=== PATIENT | male | born 1950 | race Caucasian/White ===

== ENCOUNTER → 2017-10-01 10:27 | Outpatient (CLI) | payer MEDICARE, OTHER, SELFPAY ==
--- NOTE | 2017-10-01 10:33 | RAD_ITS ---
STUDY: X-RAY - ABDOMEN/PELVIS REASON FOR EXAM: Male, 67 years old. History of bilateral kidney stones. TECHNIQUE: Two AP supine views of the abdomen and pelvis. COMPARISON: Comparison is made with prior study dated June 11, 2017. FINDINGS: Normal visualized lung bases. There is a moderate amount of colonic fecal material. The previously seen left double-J stent catheter has been removed. The previously seen calcification in the lower pole of the left kidney has markedly decreased in size. Tiny nonobstructive left intrarenal calculi are seen. Normal soft tissue structures. Normal visualized osseous structures. RAD/Abdomen Single View IMPRESSION: Tiny left nonobstructive intrarenal calculi are seen. The previously seen left double-J stent catheter has been removed. Electronically Signed: Anurag Spears MD at 11:26 EDT Tel [phone], Service support ,
== END ==
PROVIDERS: Family Provider Family Medicine; PCP Family Medicine; Visit Provider Urology
DX: N20.0 Calculus of kidney (principal)
CPT/HCPCS: 74018

== ENCOUNTER → 2018-01-28 13:50 | Outpatient (CLI) | payer MEDICARE, OTHER, SELFPAY ==
--- NOTE | 2018-01-28 13:57 | RAD_ITS ---
STUDY: X-RAY - ABDOMEN/PELVIS REASON FOR EXAM: Male, 67 years old. Kidney stones. TECHNIQUE: AP abdomen. COMPARISON: October 01, 2017 FINDINGS: There is an unremarkable bowel gas pattern. There is no demonstrated free abdominal air. There are loops of bowel obscuring anatomic detail projecting over the kidneys. Within the expected region of the right kidney there is a 2.6 mm calcific density. Within the expected region of the left kidney there is a punctate calcific density. Normal soft tissue structures. There are degenerative changes of the hips. RAD/Abdomen Single View IMPRESSION: Indeterminate calcific densities projecting over the region of the kidneys which may reflect underlying nonobstructing bilateral renal calculi. Electronically Signed: Reina Chinchilla MD at 11:23 EDT Tel , Service support ,
== END ==
PROVIDERS: Family Provider Family Medicine; PCP Family Medicine; Visit Provider Urology
DX: N20.0 Calculus of kidney (principal)
CPT/HCPCS: 74018

== ENCOUNTER → 2018-08-26 10:07 | Outpatient (CLI) | payer MEDICARE, OTHER, SELFPAY ==
--- NOTE | 2018-08-26 10:12 | RAD_ITS ---
STUDY: X-RAY - ABDOMEN/PELVIS REASON FOR EXAM: Male, 68 years old. Kidney stones. TECHNIQUE: Single AP view of the abdomen / pelvis. COMPARISON: 01/28/[address] scan of today.. FINDINGS: Note that CT scan is far more sensitive and accurate evaluation of renal stones. Please see that report. Today's exam does not show definite renal or ureteral stones because of overlying fecal material. There is an unremarkable bowel gas pattern. There is no demonstrated free abdominal air. The visualized liver, spleen and kidneys are grossly normal in size and morphology. Normal soft tissue structures. Normal visualized osseous structures. RAD/Abdomen Single View IMPRESSION: No definite renal or ureteral stones are seen primarily because of overlying bowel contents. Please see the CT scan of today's date, since CT scan is far more sensitive and accurate for renal or ureteral stones. Electronically Signed: Scar Lacy MD at 21:36 EST , Service support ,
--- NOTE | 2018-08-26 11:13 | CT_ITS ---
STUDY: CT ABDOMEN AND PELVIS WITHOUT CONTRAST REASON FOR EXAM: Male, 68 years old. Right flank pain. Hematuria. History of kidney stones. Prior lithotripsy. RADIATION DOSAGE (If Supplied By Facility): CTDIvol = ( 12.73 ) mGy, DLP = ( 655.35 ) mGycm TECHNIQUE: Transaxial images were obtained from the dome of the diaphragm to the symphysis pubis without oral contrast, and without intravenous contrast. Sagittal and coronal images were reconstructed. Individualized dose optimization techniques were used for this CT. COMPARISON: Comparison is made with prior study dated June 21, 2016. FINDINGS: Minimal increased linear markings at the lung bases suggestive of mild atelectasis. The visualized portions of the heart are within normal limits. Normal liver. Normal gallbladder and extrahepatic biliary system. There are multiple benign calcified granulomata of the spleen. Normal pancreas. Normal bilateral adrenal glands. Right perinephric stranding. Mild to moderate degree of right hydronephrosis and right hydroureter due to a 5.6 mm calculus in the distal one third of the right ureter. Small nonobstructive calculi are seen in the lower pole of the left kidney. The largest measures 3 mm. Focal cortical scarring is seen along the inferior cortex of the left kidney. Normal visualized stomach. Normal small intestine. There are multiple colonic diverticula consistent with diverticulosis. The appendix is visualized and appears normal. Normal abdominal aorta. Normal inferior vena cava. Normal retroperitoneum. Normal urinary bladder. There are prostatic calcifications. Normal abdominal wall. There are degenerative changes of the visualized lumbar spine. CT/Abdomen/Pelvis without Cont IMPRESSION: 5.6 mm calculus in the distal one third right ureter causing right hydronephrosis and right hydroureter. Nonobstructing left intrarenal calculi. Electronically Signed: Anurag Spears MD at 12:18 EST , Service support ,
== END ==
PROVIDERS: Family Provider Family Medicine; PCP Family Medicine; Referring Provider Nurse Practitioner Adult Health; Visit Provider Nurse Practitioner Adult Health
DX: N20.0 Calculus of kidney (principal); R10.9 Unspecified abdominal pain; R31.9 Hematuria, unspecified
CPT/HCPCS: 74018; 74176

== ENCOUNTER 2018-08-30 11:29 | Day surgery (SDC) | payer MEDICARE, OTHER, SELFPAY ==
--- NOTE | 2018-08-29 17:11 | PCM.HP.BLA ---
History and Physical Date of Admission: 08/30/18 68 yo male with long h/o urinary calculi presents with right flank pain that is worse today but has been intermittent for the past month. No fever, chills, nausea, vomiting. No gross hematuria but +microhematuria. He has passed only one stone but has had >20 surgeries for stones. Difficult to interpret today's KUB due to bowel gas. ALLERGIES: Demerol Penicillin Sulfa MEDICATIONS: Cialis 5 mg tablet 1 tablet PO Daily Luer-Yuri Syringe-Needle 23 gauge x 1 syringe, empty disposable INJECT 1 SYRINGE INTRAMUSCULARLY EVERY 2 WEEKS Testosterone Cypionate 200 mg/ml vial INJECT 1 ML EVERY 2 WEEKS Testosterone Cypionate 200 mg/ml vial INJECT 1 ML IM EVERY 2 WEEKS Aspirin Ec 81 mg tablet, delayed release Luer-Yuri Syringe-Needle 23 gauge x 1 syringe, empty disposable 1 syringe IM Q2WK Multivitamin Needle 18 gauge x 1 1/2 needle, disposable 1 needle IM Q2WK Simvastatin Testosterone Cypionate 200 mg/ml vial 1 ml IM Q2WK PSH: Cysto Remove Stent FB Sim - 06/11/2017, 2013 Cysto Uretero Balloon Dil Strict - 2014 Cysto Uretero Remove Stone - 2006 Cysto/Uretero W/Lithotripsy - 06/08/2017, 2013 Cystoscopy Insert Stent - 2013 Cystoscopy Retrogrades - 06/08/2017 Initial Male F & F's - 06/08/2017 Renal ESWL - 06/28/2016, 2013, 2008 NON- PSH: Colonoscopy Patient documented to have received pneumococcal vaccination Treat Skull Fracture PMH: Generalized abdominal pain - 01/28/2018 Personal history of urinary calculi - 10/01/2017 Calculus of kidney - 07/20/2016, - 06/13/2016, - 2015 Testicular hypofunction - 07/20/2016 Dysuria - 2015 Urethral stricture, unspecified - 2014, - 2013, - 2013 Urinary calculus, unspecified - 2014, - 2013 Benign prostatic hyperplasia with lower urinary tract symptoms - 2013, - 2013, - 2013 Unspecified abdominal pain - 2013 Nocturia NON- PMH: Unsp symptoms and signs w cognitive functions and awareness Unspecified osteoarthritis, unspecified site FAMILY HISTORY: Breast Cancer - Mother Colon Cancer - Grandmother, Runs in Family, Uncle, Aunt Pancreatic Cancer - Father SOCIAL HISTORY: Marital Status: Preferred Language: Luxembourgish; Ethnicity: Not Or ; Race: White Current Smoking Status: Patient has never smoked. Does not use smokeless tobacco. Has never drank. Does not use drugs. Drinks 1 caffeinated drink per day. Has not had a blood transfusion. REVIEW OF SYSTEMS: Constitutional: Patient denies fever, chills, weight loss, and weight gain. Gastrointestinal: Patient denies abdominal pain, nausea/vomiting, and change in bowels. Genitourinary: Patient reports history of stones. Patient denies frequent urination, urinary retention, get up at night to void, leakage of urine, blood in urine, frequent urinary tract infections, difficulty starting stream, weak stream, and bedwetting. Musculoskeletal: Patient reports back pain. Patient denies sore muscles. VITAL SIGNS: 08/26/2018 10:37 AM Weight 190 lb / 86.18 kg Height 68 in / 172.72 cm BP 142/84 mmHg BMI 28.9 kg/m? MULTI-SYSTEM PHYSICAL EXAMINATION: Constitutional: Well-nourished. No physical deformities. Normally developed. Good grooming. Neurologic / Psychiatric: Oriented to time, oriented to place, oriented to person. No depression, no anxiety, no agitation. Gastrointestinal: No mass, no tenderness, no rigidity, non obese abdomen. PAST DATA REVIEWED: Source Of History: Patient Records Review: Previous Patient Records Urine Test Review: Urinalysis X-Ray Review: KUB: Reviewed Films. Discussed With Patient. C.T. Abdomen/Pelvis: Reviewed Films. Reviewed Report. Discussed With Patient. 05/15/17 12/09/10 07/11/07 PSA Total PSA 0.57 ng/mL 1.30 2.10 mg/dl PROCEDURES: Urinalysis - 64256 Dipstick Dipstick Cont'd Specimen: Voided Blood: about 250 Appearance: Clear Protein: Neg Color: Yellow Urobilinogen: Neg Glucose: Normal Nitrites: Neg Bilirubin: Neg Leukocyte Esterase: Neg Ketones: Neg ASSESSMENT: ICD-10 Details 1 : Other microscopic hematuria - R31.29 2 Unspecified abdominal pain - R10.9 Stable 3 Calculus of ureter - N20.1 PLAN: Medications New Meds: Oxycodone-Acetaminophen 5 mg-325 mg tablet 1 tablet PO Q 4 H PRN ureteral stone pain #12 0 Refill(s) Document Letter(s): Created for Patient: Clinical Summary Notes: stat CT stone protocol--6 mm stone right mid ureter causing obstruction. I will review case with Dr Moreno to see what procedure he wants to do. Pt to hold ASA 81 mg (last took it yesterday). Signed by Anju Potst, ANP-BC on 08/26/18 at 1:29 PM (EST) APPENDED NOTES: Case discussed with Dr Moreno, he will do Right ureteroscopy laser stone possible stent.
--- NOTE | 2018-08-30 11:49 | RAD_ITS ---
STUDY: X-RAY - ABDOMEN/PELVIS REASON FOR EXAM: Male, 68 years old. Right-sided kidney stones. TECHNIQUE: Two AP supine views of the abdomen and pelvis. COMPARISON: Comparison is made with prior study dated August 26, 2018. FINDINGS: Normal visualized lung bases. There is an abundance of fecal material throughout the colon. I suspect a 5 mm calcification overlying the midportion of the right sacrum. Normal soft tissue structures. Normal visualized osseous structures. RAD/Abdomen Single View IMPRESSION: Findings suggestive of a 5 mm calcification overlying the medial midportion of the right sacrum. This may represent a ureteral calculus. Electronically Signed: Anurag Spears MD at 15:14 EST , Service support ,
[2018-08-30 12:13] VITALS: BMI 29.7
[2018-08-30] MEDS: Lubricating Jelly 60 GM Tube 30 GM TOPICAL (12:21)
[2018-08-30 12:29] VITALS: BP 128/71; PULSE 62; RESP 16; TEMP 37; O2SAT 98; BMI 29.7
[2018-08-30] MEDS: Cefazolin 2 GM in 0.9% Normal Saline 100 ML IV (12:38)
--- NOTE | 2018-08-30 12:47 | DCINST_ITS ---
Discharge Diet: Light diet - advance as tolerated Discharge Activity: Return to Normal Activity Call your doctor if you observe: Fever of 101 or Higher, Inability to urinate, Uncontrolled pain Instructions: Treating Kidney Stones: Ureteroscopic Stone Removal Allergies/Adverse Reactions: Allergies meperidine HCl [From Demerol] Allergy (Verified 08/30/18 12:08) Vomiting Penicillins Allergy (Verified 08/30/18 12:08) Unknown Sulfa (Sulfonamide Antibiotics) Allergy (Verified 08/30/18 12:08) Hives Medications to take at Discharge Aspirin [Aspirin, Baby] 81 mg PO DAILY 04/25/14 Simvastatin [Zocor] 20 mg PO QHS 04/25/14 Tadalafil [Cialis] 5 mg PO DAILY 06/27/16 Testosterone Cypionate [Depo-Testosterone] 100 mg IM QWEEK 08/29/18 Acetaminophen [Tylenol Extra Strength] 500 mg PO Q4H PRN PRN #20 tablet 08/30/18 Hydrochlorothiazide 50 mg PO DAILY #30 tablet 08/30/18 Ibuprofen 600 mg PO Q6H PRN PRN #20 tablet 08/30/18 The following prescriptions were given: Acetaminophen [Tylenol Extra Strength] 500 mg PO Q4H PRN PRN #20 tablet PRN Reason: Pain Ibuprofen 600 mg PO Q6H PRN PRN #20 tablet PRN Reason: Pain Hydrochlorothiazide 50 mg PO DAILY #30 tablet Primary Care Physician: Priscilla Napoles DO [Primary Care Provider] - Test Results: Test results from this visit will be discussed in further detail at your follow- up appointment, if applicable. Please Follow Up With: Abisai Moreno MD When: in 2 weeks, please call to make an appointment.
--- NOTE | 2018-08-30 13:14 | OP.PCM_ITS ---
Report of Operation Date of Procedure: 08/30/18 Pre-Operative Diagnosis: Right ureteral calculi causing obstruction and hy dronephrosis Post-Operative Diagnosis: The same Surgery/Procedure Performed:: Cystoscopy, balloon dilation of the right ureter, right ureteroscopy laser lithotripsy of stone, basket extraction of fragments. No stent placed. Description of Surgical Findings:: 68-year-old male taken back to the operating room after smooth induction of general anesthesia he was placed in dorsolithotomy position the penis and testicles are prepped and draped in usual sterile fashion went into the bladder with a 21 Luxembourgish rigid cystourethroscope cannulated the right ureteral orifice with a Glidewire advanced this up past the stone and then advance balloon dilator up to the stone balloon dilated the distal ureter left the wire in place and then went next the wire with a SlimLine offset ureteroscope was able to get the stone quite easily then used a 270 ?m laser fiber laser the stone little tiny pieces and then used a tipless basket and basket the fragments out of the ureter the ureter was then cleared of all fragments I then removed the wire the ureter was nice and clear and patent no damage injury perforation or trauma to the ureter so therefore no stent was left I went I left the ureter with the ureteroscope drain the bladder and the patient's anesthetic is currently being reversed. Type of Anesthesia:: General Drains: none, no stent - Admit VTE Documentation VTE Present on Admission: No VTE Mechan Device Prophylaxis: SCD's
[2018-08-30 13:25] VITALS: BP 128/71; BP 142/82; PULSE 88; RESP 16; TEMP 36.6; O2SAT 92
[2018-08-30 13:30] VITALS: BP 128/71; BP 138/71; PULSE 79; RESP 18; O2SAT 95
[2018-08-30] MEDS: Ketorolac 15 MG/ML Vial IV (13:33)
[2018-08-30 13:43] VITALS: BP 128/71; BP 132/73; PULSE 86; RESP 18; TEMP 37.2; O2SAT 94
[2018-08-30 14:20] VITALS: BP 128/71; BP 131/66; PULSE 72; RESP 16; TEMP 36.6; O2SAT 97
== END 2018-08-30 14:20 | disposition home or self-care (01) ==
LOC: SDC 11:30 → AC 11:33
PROVIDERS: Family Provider Family Medicine; PCP Family Medicine; Referring Provider Urology; Visit Provider Urology
PROC: 0TJ98ZZ Inspection of Ureter, Via Natural or Artificial Opening Endoscopic (ICD-10-PCS; CPT 52352; principal; 2018-08-30 12:45)
DX: N13.2 Hydronephrosis with renal and ureteral calculous obstruction (principal); Z87.442 Personal history of urinary calculi; R31.29 Other microscopic hematuria; E78.00 Pure hypercholesterolemia, unspecified
CPT/HCPCS: 00862; 52352; 74018; 76000; J7120; C1769; J2405

== ENCOUNTER → 2018-12-06 10:04 | Outpatient (CLI) | payer MEDICARE, OTHER, SELFPAY ==
[2018-09-28 08:16] VITALS: BMI 29.7
--- NOTE | 2018-12-06 10:06 | RAD_ITS ---
STUDY: X-RAY - ABDOMEN/PELVIS REASON FOR EXAM: Male, 68 years old. Bilateral flank pain with history of kidney stones TECHNIQUE: Supine abdomen COMPARISON: 08/30/2018 FINDINGS: Normal visualized lung bases. There is an unremarkable bowel gas pattern. There is no demonstrated free abdominal air. Calcifications projecting over the inferior left kidney are similar measuring up to 5 mm. The right kidney is largely obscured due to bowel contents. The calcification projecting the right sacrum on the prior study is not seen on the current exam. Normal soft tissue structures. Normal visualized osseous structures. RAD/Abdomen Single View IMPRESSION: Stable left nephrolithiasis. Electronically Signed: Tank Hickey MD at 14:14 EDT , Service support ,
== END ==
PROVIDERS: Family Provider Family Medicine; PCP Family Medicine; Referring Provider Urology; Visit Provider Urology
DX: N20.0 Calculus of kidney (principal)
CPT/HCPCS: 74018

== ENCOUNTER 2018-12-25 09:46 | Day surgery (SDC) | payer MEDICARE, OTHER, SELFPAY ==
[2018-09-28 08:16] VITALS: BMI 29.7
--- NOTE | 2018-12-25 09:49 | RAD_ITS ---
STUDY: X-RAY - ABDOMEN/PELVIS REASON FOR EXAM: Male, 68 years old. Left-sided kidney stones. TECHNIQUE: Single AP view of the abdomen / pelvis. COMPARISON: Comparison is made with prior study dated December 06, 2008. FINDINGS: Normal visualized lung bases. There is a moderate amount of colonic fecal material. Stable appearance of the fragmented calcification in the lower pole calyx of the left kidney. Normal soft tissue structures. There are degenerative changes of the visualized lumbar spine. RAD/Abdomen Single View IMPRESSION: Stable appearance of the calcifications in the lower pole calyx of the left kidney. Electronically Signed: Anurag Spears, at 13:24 EDT , Service support ,
[2018-12-25 10:26] VITALS: BP 99/71; PULSE 51; RESP 16; TEMP 36.6; O2SAT 97; BMI 28.3
[2018-12-25] MEDS: Cefazolin 2 GM in 0.9% Normal Saline 100 ML IV (11:00)
--- NOTE | 2018-12-25 11:06 | PCM.DC.URO ---
Discharge Diet: Light diet - advance as tolerated Discharge Activity: Return to Normal Activity Suture Line Care: Avoid Pulling/Pushing, Avoid Pinching/Bending Instructions: Shock Wave Lithotripsy Allergies/Adverse Reactions: Allergies meperidine HCl [From Demerol] Allergy (Verified 12/25/18 10:26) Vomiting Penicillins Allergy (Verified 12/25/18 10:26) Unknown Sulfa (Sulfonamide Antibiotics) Allergy (Verified 12/25/18 10:26) Hives Medications to take at Discharge Testosterone Cypionate [Depo-Testosterone] 100 mg IM QWEEK 08/29/18 aspirin 81 mg chewable tablet 81 mg PO DAILY 09/28/18 bee pollen 550 mg capsule 550 mg PO DAILY cap 09/28/18 Hydrocodone/Acetaminophen [[place] 5-325 Tablet] 1 ea PO Q4H PRN PRN 5 Days #20 tab 12/25/18 The following prescriptions were given: Hydrocodone/Acetaminophen [[place] 5-325 Tablet] 1 ea PO Q4H PRN PRN 5 Days #20 tab PRN Reason: Pain Primary Care Physician: Priscilla Napoles DO [Primary Care Provider] - Test Results: Test results from this visit will be discussed in further detail at your follow-up appointment, if applicable. Please Follow Up With: Abisai Moreno MD When: in 2 weeks, please call to make an appointment.
--- NOTE | 2018-12-25 11:51 | PCM.OPRPT ---
Report of Operation Date of Procedure: 12/25/18 Pre-Operative Diagnosis: Left renal calculi Post-Operative Diagnosis: Same Surgery/Procedure Performed:: Left extracorporeal shockwave lithotripsy Description of Surgical Findings:: 68-year-old male history of kidney stones and some in the office with an x-ray recently the past and few fragments on the KUB as multiple fragments within the left kidney replanning the treat the stones with shockwave lithotripsy. 68-year-old male taken back to the operating room at the smooth induction of general anesthesia he was placed supine on the table and then we came in with the F2 lithotripter machine came in underneath the stone could see the stone in the lower pole of the left kidney and then a applied 3000 shockwaves to the stones at a constant rate of 90, power varying from 5 to 7 kV. During the fragmentation mucousy changes in the stones as what we could see them under fluoroscopy at the end of the treatment cycle total of 3000 shockwaves the stone particles of broken up small fragments could still see in the lower pole the left kidney but they have definitely changed. Elected not to leave a stent. Patient's anesthetic is being reversed plan to see him back in a few weeks with a KUB. Type of Anesthesia:: General Drains: none - Admit VTE Documentation VTE Present on Admission: No VTE Mechan Device Prophylaxis: SCD's
[2018-12-25 11:57] VITALS: BP 117/81; BP 99/71; PULSE 69; RESP 16; TEMP 36.8; O2SAT 92
[2018-12-25 12:00] VITALS: BP 127/80; BP 99/71; PULSE 72; RESP 16; O2SAT 92
[2018-12-25 12:15] VITALS: BP 125/75; BP 99/71; PULSE 55; RESP 16; O2SAT 94
[2018-12-25 12:30] VITALS: BP 115/74; BP 99/71; PULSE 56; RESP 16; TEMP 36.7; O2SAT 94
[2018-12-25 13:30] VITALS: BP 128/81; BP 99/71; PULSE 88; RESP 16; TEMP 36.1; O2SAT 100
--- NOTE | 2018-12-30 12:09 | HP.PCM_ITS ---
History and Physical Date of Admission: 12/25/18 PATRICIA SLAUGHTER is a 68 year-old male established patient who is here for renal calculi The problem is on the Left side. Patient denies stent, eswl, and percutaneous lithotomy. This procedure was done 1 month ago. This is not his first kidney stone. He is currently doing well. He does not have dysuria. He does not have urgency. He does not have frequency. ALLERGIES: Demerol Penicillin Sulfa MEDICATIONS: Cialis 5 mg tablet 1 tablet PO Daily Luer-Yuri Syringe-Needle 23 gauge x 1 syringe, empty disposable INJECT 1 SYRINGE INTRAMUSCULARLY EVERY 2 WEEKS Testosterone Cypionate 200 mg/ml vial INJECT 1 ML EVERY 2 WEEKS Testosterone Cypionate 200 mg/ml vial INJECT 1 ML IM EVERY 2 WEEKS Aspirin Ec 81 mg tablet, delayed release Luer-Yuri Syringe-Needle 23 gauge x 1 syringe, empty disposable 1 syringe IM Q2WK Multivitamin Needle 18 gauge x 1 1/2 needle, disposable 1 needle IM Q2WK Oxycodone-Acetaminophen 5 mg-325 mg tablet 1 tablet PO Q 4 H PRN ureteral stone pain Simvastatin Testosterone Cypionate 200 mg/ml vial 1 ml IM Q2WK PSH: Cysto Dilate Stricture (M or F) - 08/30/2018 Cysto Remove Stent FB Sim - 06/11/2017, 2013 Cysto Uretero Balloon Dil Strict - 2014 Cysto Uretero Lithotripsy - 08/30/2018 Cysto Uretero Remove Stone - 2006 Cysto/Uretero W/Lithotripsy - 06/08/2017, 2013 Cystoscopy And Treatment - 08/30/2018 Cystoscopy Insert Stent - 2013 Cystoscopy Retrogrades - 06/08/2017 Initial Male F & F's - 06/08/2017 Renal ESWL - 06/28/2016, 2013, 2008 NON- PSH: Colonoscopy Patient documented to have received pneumococcal vaccination Treat Skull Fracture PMH: Calculus of ureter - 08/26/2018 Other microscopic hematuria - 08/26/2018 Unspecified abdominal pain (Stable) - 08/26/2018, - 2013 Generalized abdominal pain - 01/28/2018 Personal history of urinary calculi - 10/01/2017 Calculus of kidney - 07/20/2016, - 06/13/2016, - 2015 Testicular hypofunction - 07/20/2016 Dysuria - 2015 Urethral stricture, unspecified - 2014, - 2013, - 2013 Urinary calculus, unspecified - 2014, - 2013 Benign prostatic hyperplasia with lower urinary tract symptoms - 2013, - 2013, - 2013 Nocturia NON- PMH: Unsp symptoms and signs w cognitive functions and awareness Unspecified osteoarthritis, unspecified site Immunizations: None FAMILY HISTORY: Breast Cancer - Mother Colon Cancer - Grandmother, Runs in Family, Uncle, Aunt Pancreatic Cancer - Father SOCIAL HISTORY: Marital Status: Preferred Language: Ukrainian; Ethnicity: Not Or ; Race: White Current Smoking Status: Patient has never smoked. Smoking cessation counseling was provided. Does not use smokeless tobacco. Has never drank. Does not use drugs. Drinks 1 caffeinated drink per day. Has not had a blood transfusion. VITAL SIGNS: 09/26/2018 02:18 PM Weight 195 lb / 88.45 kg Height 68 in / 172.72 cm BP 152/90 mmHg BMI 29.6 kg/m? - BMI Counseling was provided. MULTI-SYSTEM PHYSICAL EXAMINATION: Constitutional: Well-nourished. No physical deformities. Normally developed. Good grooming. Neck: Neck symmetrical, not swollen. Normal tracheal position. Respiratory: No labored breathing, no use of accessory muscles. Normal breath sounds. Cardiovascular: Regular rate and rhythm. No murmur, no gallop. Normal temperature, normal extremity pulses, no swelling, no varicosities. Lymphatic: No enlargement of neck, axillae, groin. Skin: No paleness, no jaundice, no cyanosis. No lesion, no ulcer, no rash. Neurologic / Psychiatric: Oriented to time, oriented to place, oriented to person. No depression, no anxiety, no agitation. Gastrointestinal: No mass, no tenderness, no rigidity, non obese abdomen. Eyes: Normal conjunctivae. Normal eyelids. Ears, Nose, Mouth, and Throat: Left ear no scars, no lesions, no masses. Right ear no scars, no lesions, no masses. Nose no scars, no lesions, no masses. Normal hearing. Normal lips. Musculoskeletal: Normal gait and station of head and neck. PAST DATA REVIEWED: Source Of History: Patient 05/15/17 12/09/10 07/11/07 PSA Total PSA 0.57 ng/mL 1.30 2.10 mg/dl Notes [facility] [address] [place], [place], [id number] This test was performed using the TPSA assay method for the [employer] chemistry system. Values obtained with different assay methods cannot be used interc hangably. When changing PSA assays in the course of monitoring a patient, additional sequential testing should be carried out to confirm baseline values. 05/16/17 Hormones Testosterone, Total 561 ng/dL Notes [facility] [address] [place], [place], [id number] PROCEDURES: Urinalysis - [address]7527 Dipstick Dipstick Cont'd Specimen: Voided Blood: Neg Appearance: Clear pH: 5.0 Color: Yellow Protein: Neg Glucose: Normal Urobilinogen: Neg Bilirubin: Neg Nitrites: Neg Ketones: Neg Leukocyte Esterase: Neg ASSESSMENT: ICD-10 Details 1 : Calculus of ureter - N20.1 PLAN: Document Letter(s): Created for Patient: Clinical Summary Plan for left ESWL for stones.
== END 2018-12-25 13:34 | disposition home or self-care (01) ==
LOC: SDC 09:47 → AC 09:49
PROVIDERS: Family Provider Family Medicine; PCP Family Medicine; Referring Provider Urology; Visit Provider Urology
PROC: (CPT 50590; principal; 2018-12-25 11:05)
DX: N20.2 Calculus of kidney with calculus of ureter (principal); Z88.5 Allergy status to narcotic agent; Z88.0 Allergy status to penicillin; Z88.2 Allergy status to sulfonamides; Z87.442 Personal history of urinary calculi
CPT/HCPCS: 00873; 50590; 74018; J7120; J2405

== ENCOUNTER → 2019-01-30 08:00 | Outpatient (CLI) | payer MEDICARE, OTHER, SELFPAY ==
--- NOTE | 2019-01-30 08:02 | RAD_ITS ---
STUDY: X-RAY - ABDOMEN/PELVIS REASON FOR EXAM: Male, 68 years old. Kidney stone. TECHNIQUE: Two AP supine views of the abdomen and pelvis. COMPARISON: December 25, 2018. FINDINGS: Normal visualized lung bases. There is an unremarkable bowel gas pattern. There is no demonstrated free abdominal air. There are multiple left renal stones at the lower pole measuring 0.2-0.4 cm. Normal soft tissue structures. Mild degenerative change of the spine. RAD/Abdomen Single View IMPRESSION: Stable left renal stones. Electronically Signed: Paul Quinones MD at 9:21 EDT , Service support ,
== END ==
PROVIDERS: Family Provider Family Medicine; PCP Family Medicine; Referring Provider Urology; Visit Provider Urology
DX: N20.0 Calculus of kidney (principal)
CPT/HCPCS: 74018

== ENCOUNTER 2019-02-11 23:33 | Emergency (ER) | payer MEDICARE, OTHER, SELFPAY ==
[2019-02-11 23:34] VITALS: BP 108/70; PULSE 82; RESP 16; TEMP 37.1; O2SAT 93; BMI 26.9
[2019-02-11 23:38] VITALS: TEMP 37.1
--- NOTE | 2019-02-11 23:47 | EKG12_ITS ---
Test Reason : SOB Blood Pressure : / mmHG Vent. Rate : 065 BPM Atrial Rate : 065 BPM P-R Int : 146 ms QRS Dur : 086 ms QT Int : 390 ms P-R-T Axes : 046 -20 008 degrees QTc Int : 405 ms Normal sinus rhythm Normal ECG Confirmed by SHAMAR AKINS ([id number]), book editor ZOILA CARMONA ([id number]) on 02/13/2019 10:01:24 AM Referred By: GERRI Confirmed By:SHAMAR AKINS
[2019-02-12] VITALS: PULSE 73; RESP 16
[2019-02-12] MEDS: Ipratropium/Albuterol Sulfate 3 ML AMPUL.NEB INHALATION
--- NOTE | 2019-02-12 00:04 | RAD_ITS ---
HISTORY: C/O COUGH, SOB, CHEST CONGESTION AND FATIGUE FOR 2 + WEEKS EXAM/TECHNIQUE: XR Chest 2 Views: COMPARISON: None. FINDINGS: # of images incl. paperwork: 2 Mild lingular opacity. Lungs otherwise clear. No evidence of pneumothorax or pleural effusion. Heart size normal. No acute osseous abnormality. RAD/Chest PA and Lateral IMPRESSION: Lingular opacity could represent mild pneumonia or atelectasis. at 0157 Reported and signed by: Augusto Madrid MD Electronically Signed: Augusto Madrid, at 1:55 EDT Tel , Service support ,
[2019-02-12] MEDS: 0.9% Normal Saline 1,000 ML 150 ML IV (00:17)
[2019-02-12] MEDS: MethylPREDNISolone 125 MG/2 ML Vial IV (00:17)
[2019-02-12 00:25] VITALS: O2SAT 95
[2019-02-12 00:30] LABS: Absolute Lymphocyte Count 1.47 X10^3/uL (0.83-4.51); Basophil# 0.05 X10^3/uL; Basophil% 0.7 % (0-1); Eosinophil# 0.15 X10^3/uL; Hematocrit 44.8 % (40-54); Hemoglobin 15.7 g/dL (13.0-16.5); Lymphocyte # 1.47 X10^3/ul (4.0); Lymphocyte % 19.7 % (19-41); Mean Corpuscular Hgb 29.7 pg (27.0-32.0); Mean Corpuscular Volume 84.8 fL (80-94); Mean Platelet Vol. 9.7 fl (6.2-12.0); Monocyte# 0.74 X10^3/uL; Monocyte% 9.9 % (0-10); NRBC Flagged by Analyzer 0 % (0-5); Neutrophil # 5.03 X10^3/uL (2.7-7.7); Neutrophil % 67.6 % (47-70); Platelet Count 180 K/mm3 (150-450); RBC Distribution Width CV 12.6 % (11.6-14.6); RBC Distribution Width SD 38.4 fl (35.1-43.9); Red Blood Count 5.28 M/mm3 (4.6-6.2); White Blood Count 7.5 K/mm3 (4.4-11.0)
[2019-02-12 00:51] LABS: Lactic Acid 1.2 mmol/L (0.4-2.0)
[2019-02-12 00:55] LABS: Anion Gap 5 (5-15); BUN 16 mg/dL (7-18); Calcium,Total 8.9 mg/dL (8.5-10.1); Chloride 105 mmol/L (98-107); Creatinine, Serum 1.07 mg/dL (0.70-1.30); EST Glomerular Filtration Rate 73 mL/min (>60); Est Glom Filt Rate - Afr Amer 89 mL/min (>60); Glucose 115 mg/dL (74-106); Sodium Level 138 mmol/L (136-145)
--- NOTE | 2019-02-12 02:10 | ED.VISSUMM ---
- ER Visit Summary Date of Service: 02/12/19 Chief Complaint: [Cough and shortness of breath] History of Present Illness: The patient is a 68 M [presents to the emergency department with a cough that he said for about 11 days. Patient coughing up some yellow sputum. He has had chills and sweats. Patient was seen in urgent care yesterday and started on doxycycline. Patient complains of generalized weakness. Patient complains of some exertional dyspnea. states that she gave him her inhaler because he was wheezing tonight.] Patient does not smoke. Patient has no real medical history other than kidney stones. Physical Examination: [HEENT-PERRLA, EOMI. Cranial nerves II through XII grossly intact. TMs clear. Mucous membranes moist. No adenopathy. Cardiovascular-regular rate and rhythm without murmur or ectopy Lungs-rales in the bases with rhonchi and some expiratory wheezes bilaterally. No accessory muscle use or retractions. No subcu emphysema. Chest wall stable. Abdomen-normoactive bowel sounds, soft, nontender, no rebound or rigidity, no peritoneal signs. Extremities-intact ?4, normal range of motion, normal pulses, atraumatic] Test Results: [EKG obtained arrival shows sinus rhythm with a ventricular rate 65 bpm. CBC with differential was normal with normal white count of 7.5. Chemistries were normal. Troponin is less than 0.15. Chest x-ray showed a increased lingular opacity could be early infiltrate.] Emergency Department Course and Treatment: [She was given DuoNeb aerosol and start Solu-Medrol 125 mg IV. Patient was given Levaquin 750 mg p.o.] Treatment Plan: [She will be switched to Levaquin for suspected pneumonia. Patient will be given Tessalon Perles and albuterol MDI. She will be started on prednisone.] Disposition: [Discharged to home stable condition] Impression: [Pneumonia Reactive airway disease] This note was generated with [employer] dictation software. It may contain incorrect words, spelling, and punctuation that were not noted in review of the chart prior to signing ED Disposition - Plan for ED Patient: Referrals: Priscilla Napoles DO [Primary Care Provider] -
--- NOTE | 2019-02-12 02:13 | ED.DEP ---
ED Disposition - Plan for ED Patient: Instructions: PNEUMONIA (Adult) Prescriptions: Prednisone [Deltasone] 20 mg PO BID #10 tab Prescription Printed Levofloxacin [Levaquin] 750 mg PO DAILY #7 tab Prescription Printed Benzonatate [Tessalon Perle] 200 mg PO TID PRN PRN #20 cap PRN Reason: Cough Prescription Printed Albuterol Inhaler [Ventolin Hfa] 2 puff INHALATION Q4H PRN PRN #1 inhaler PRN Reason: Wheezing Prescription Printed Referrals: Priscilla Napoles DO [Primary Care Provider] - 3-5 Days
[2019-02-12] MEDS: levoFLOXacin 750 MG Tablet PO (02:29)
[2019-02-12 02:30] VITALS: BP 116/76; PULSE 82; RESP 16; TEMP 37; O2SAT 91
== END 2019-02-12 02:32 | disposition home or self-care (01) ==
PROVIDERS: Emergency Provider Emergency Medicine; Family Provider Family Medicine; PCP Family Medicine
DX: J18.9 Pneumonia, unspecified organism (principal); J45.909 Unspecified asthma, uncomplicated; Z87.442 Personal history of urinary calculi
CPT/HCPCS: 36415; 71046; 80048; 83605; 84484; 85025; 87040; 93005; 94640; 96361; 96374; 99285; J7030; A4216

== ENCOUNTER → 2019-05-08 12:21 | Outpatient (CLI) | payer MEDICARE, OTHER, SELFPAY ==
--- NOTE | 2019-05-08 12:25 | RAD_ITS ---
STUDY: X-RAY CHEST REASON FOR EXAM: Male, 69 years old. Fever and cough TECHNIQUE: PA and lateral views of the chest. COMPARISON: None. FINDINGS: EKG leads overlie the chest There are interstitial fibrotic changes of the lungs. There is no demonstrated pleural abnormality. Normal size heart. Normal mediastinum and my. Normal visualized pulmonary arteries. Normal visualized aortic arch and descending thoracic aorta. Normal visualized thoracic spine. Normal visualized ribs, clavicles, and shoulders. There is no demonstrated abnormality of the visualized soft tissue structures of the upper abdomen. RAD/Chest PA and Lateral IMPRESSION: Chronic interstitial changes, no superimposed acute pulmonary process Electronically Signed: Koby Arana MD at 12:42 EDT , Service support ,
[2019-05-08 13:47] LABS: Absolute Lymphocyte Count 1.05 X10^3/uL (0.83-4.51); Absolute Neutrophil Count 5.5 X10^3/uL (2.0-7.7); Basophil# 0.03 X10^3/uL; Basophil% 0.4 % (0-1); Eosinophil# 0.03 X10^3/uL; Eosinophils% 0.4 % (0-5); Hematocrit 50.3 % (40-54); Hemoglobin 16.9 g/dL (13.0-16.5); Lymphocyte # 1.05 X10^3/ul (4.0); Lymphocyte % 14.7 % (19-41); Mean Corp Hgb Conc 33.6 g/dL (32-36); Mean Corpuscular Volume 89.3 fL (80-94); NRBC Flagged by Analyzer 0 % (0-5); Neutrophil % 77.1 % (47-70); Platelet Count 206 K/mm3 (150-450); RBC Distribution Width CV 12.7 % (11.6-14.6); RBC Distribution Width SD 41.6 fl (35.1-43.9); Red Blood Count 5.63 M/mm3 (4.6-6.2); White Blood Count 7.1 K/mm3 (4.4-11.0)
[2019-05-08 14:02] LABS: ALB/GLOB Ratio 1.3 RATIO (0.9-2.4); AST(SGOT) 15 U/L (15-37); Alanine Aminotransfer ALT/SGPT 31 U/L (16-61); Alkaline Phosphatase 60 U/L (45-117); Anion Gap 5 (5-15); BUN 12 mg/dL (7-18); BUN/Creat Ratio 11.9 RATIO (10-20); Calcium,Total 9.1 mg/dL (8.5-10.1); Chloride 105 mmol/L (98-107); Cholesterol 179 mg/dL (200); Creatinine, Serum 1.01 mg/dL (0.70-1.30); EST Glomerular Filtration Rate 78 mL/min (>60); Est Glom Filt Rate - Afr Amer 95 mL/min (>60); Glucose 85 mg/dL (74-106); High Density Lipoprotein 41 mg/dL; PSA,Total - Annual Screen 0.64 ng/mL (0.00-4.00); Sodium Level 142 mmol/L (136-145); Triglycerides 245 mg/dL; Very Low Density Lipoprotein 49 mg/dL (5-40)
== END ==
PROVIDERS: Family Provider Family Medicine; PCP Family Medicine; Referring Provider Family Medicine; Visit Provider Family Medicine
DX: E78.5 Hyperlipidemia, unspecified (principal); N40.0 Benign prostatic hyperplasia without lower urinary tract symptoms; Z51.81 Encounter for therapeutic drug level monitoring; J18.9 Pneumonia, unspecified organism
CPT/HCPCS: 36415; 71046; 80053; 80061; 84153; 85025; G0103

== ENCOUNTER → 2019-09-11 08:05 | Outpatient (CLI) | payer MEDICARE, OTHER, SELFPAY ==
--- NOTE | 2019-09-11 12:01 | STRESSREP_ITS ---
Stress Test Report Date: 09/11/2019 Procedure: Exercise tolerance test Indications: Dyspnea on exertion Consent: Per the patient Procedure: The patient exercised on a Mat protocol for 12 minutes achieving a peak heart rate of 142 bpm (92 % predicted maximal heart rate) with a peak blood pressure 168/72 mmHg and a peak MET capacity of approximately 13.4 mET's. The baseline ECG demonstrated normal sinus rhythm. The peak exercise ECG demonstrated sinus tachycardia with no significant ischemic changes. [There were no cardiac dysrhythmias pretest, during exercise, or recovery]. The functional capacity was considered excellent for age. The patient had no complaint of chest discomfort during exercise or recovery. The examination was discontinued secondary to achieving target heart rate. Impression: 1. Technically adequate (percent predicted maximal heart rate greater than 85%) exercise tolerance test 2. Stress test is negative for exercise-induced chest pain. 3. Stress test test is negative for exercise-induced EKG changes of ischemia. 4. Functional capacity is excellent for age This note was generated with [employer] software. It may contain incorrect words, spelling, and punctuation that were not noted in checking the note before signing.
== END ==
PROVIDERS: PCP Family Medicine; Referring Provider Internal Medicine Pulmonary Disease; Visit Provider Internal Medicine Pulmonary Disease
DX: R06.00 Dyspnea, unspecified (principal)
CPT/HCPCS: 93017

== ENCOUNTER → 2019-09-24 09:25 | Outpatient (CLI) | payer MEDICARE, OTHER, SELFPAY | PROVIDERS: PCP Family Medicine; Visit Provider Family Medicine | DX: R30.0 Dysuria (principal) | CPT/HCPCS: 87086 ==

== ENCOUNTER → 2019-10-07 14:50 | Outpatient (CLI) | payer MEDICARE, OTHER, SELFPAY ==
--- NOTE | 2019-10-07 14:54 | RAD_ITS ---
STUDY: X-RAY - ABDOMEN/PELVIS REASON FOR EXAM: Male, 69 years old. CALCULUS OF URETER;H/O KIDNEY STONES LEFT FLANK PAIN TECHNIQUE: Single AP view of the abdomen / pelvis. COMPARISON: 01/30/2019. FINDINGS: Normal visualized lung bases. There is an unremarkable bowel gas pattern. There is no demonstrated free abdominal air. 2 calcifications in the expected region of the left kidney each averaging approximately 4-4.5 mm. The visualized liver, spleen and kidneys are otherwise grossly normal in size and morphology. Normal soft tissue structures. There are diffuse degenerative changes of the visualized lumbar spine. RAD/Abdomen Single View IMPRESSION: Calcifications in the expected region of the left kidney which may indicate stones as described. Electronically Signed: Denise Stephens MD at 0:48 EDT , Service support ,
== END ==
PROVIDERS: PCP Family Medicine; Referring Provider Urology; Visit Provider Urology
DX: N20.1 Calculus of ureter (principal)
CPT/HCPCS: 74018

== ENCOUNTER 2019-10-10 13:46 | Day surgery (SDC) | payer MEDICARE, OTHER, SELFPAY ==
[2019-10-10 14:08] VITALS: BP 105/87; PULSE 63; RESP 15; TEMP 37; O2SAT 93; BMI 29.2
[2019-10-10] MEDS: Lactated Ringers 1,000 ML 100 ML IV (14:14)
[2019-10-10] MEDS: Cefazolin 2 GM in 0.9% Normal Saline 100 ML IV (16:05)
--- NOTE | 2019-10-10 17:04 | DCINST_ITS ---
Discharge Diet: No Restrictions Discharge Activity: Return to Normal Activity, May Not Drive - for 2 days. Additional Activity Instructions:: Please be aware that pain medications may cause nausea. You should typically eat light foods as you take your pain medication. Pain medication may cause constipation, if this is a problem for you, please discuss with your doctor. Suture Line Care: Avoid Pulling/Pushing, Avoid Pinching/Bending Allergies/Adverse Reactions: Allergies meperidine HCl [From Demerol] Allergy (Verified 10/10/19 13:55) Vomiting Penicillins Allergy (Verified 10/10/19 13:55) Unknown Sulfa (Sulfonamide Antibiotics) Allergy (Verified 10/10/19 13:55) Hives Medications to take at Discharge Testosterone Cypionate [Depo-Testosterone] 100 mg IM QWEEK 08/29/18 aspirin 81 mg chewable tablet 81 mg PO DAILY 09/28/18 bee pollen 550 mg capsule 550 mg PO DAILY cap 09/28/18 Albuterol Inhaler [Ventolin Hfa] 2 puff INHALATION Q4H PRN PRN #1 inhaler 02/12/19 Fluticasone/Vilanterol [Breo Ellipta 200-25 Mcg INH] 1 puff IH DAILY 10/09/19 Gabapentin [Neurontin] 300 mg PO QHS 10/09/19 Simvastatin 20 mg PO DAILY 10/09/19 Ciprofloxacin [Cipro] 500 mg PO BID #6 tab 10/10/19 Hydrocodone/Acetaminophen [[place] 5-325 Tablet] 1 each PO Q4H PRN PRN 5 Days #14 tablet 10/10/19 The following prescriptions were given: Ciprofloxacin [Cipro] 500 mg PO BID #6 tab Transmission Status: Pending to [id number] Hydrocodone/Acetaminophen [[place] 5-325 Tablet] 1 each PO Q4H PRN PRN 5 Days #14 tablet PRN Reason: Pain Score 1-10/10 Transmission Status: Received by [id number] Primary Care Physician: Priscilla Napoles DO [Primary Care Provider] - Test Results: Test results from this visit will be discussed in further detail at your follow- up appointment, if applicable. Please Follow Up With: Abisai Moreno MD When: please call to make an appointment.
--- NOTE | 2019-10-10 17:06 | OP.PCM_ITS ---
Report of Operation Date of Procedure: 10/10/19 Pre-Operative Diagnosis: Left renal calculi Post-Operative Diagnosis: Same Surgery/Procedure Performed:: Cystoscopy, balloon dilation of left ureter, left ureteroscopy, attempted laser and attempted basketing of stones unsuccessful left stent placement Description of Surgical Findings:: Patient presented to the hospital for treatment of a calculus 6 millimeters in size in the proximal ureter and lower pole the kidney. We discussed how the procedure is done what to expect afterwards he probably will need a stent. We discussed the discomfort that the stent would cause, burning w ith urination, frequency, urgency, pain in the kidney, blood in the urine. We also discussed the risk of the procedure including bleeding and infection and the risk of anesthesia. We discussed the very rare risk of injury or scar tissue development in the ureter after this procedure. We also discussed the possibility that the stone would not be able to be treated completely and he may need multiple procedures. After discussion with the patient in the preoperative area also I saw the patient in the office discussing the same outcomes the patient signed the consent form, and all the patient's questions were answered. The patient was taken back to the operating room after smooth induction of general anesthesia and the patient was placed supine on the table. We then repositioned the patient in dorsolithotomy position with the legs in stirrups. We made sure all his pressure points were padded. The patient had SCDs on for DVT prophylaxis and was loaded with IV antibiotics prior to the procedure. Imaging was reviewed if available. I went into the bladder with a 21 Emir[place] rigid cystoscopy ureteroscopy after gentle dilation of the urethra. The urethra had a mild mid urethral stricture that was present was able to get through this with the scope. The prostate prior TURP fairly open a mild stricture at the bladder neck. Inside the bladder the trigone was inspected left and right guevara of the bladder and posterior and dome of the bladder was inspected and the main findings in the bladder was normal with no tumors or stones. I then cannulated the ureter and used a wire to go up to the ureter then over the wire I performed balloon dilation of the distal ureter with a ureteral balloon dilator, the balloon dilator size was 12 Emir[place] dilator. I then left the wire in place and over wire I went up with a ureteroscope. I was able to reach the stone in the lower pole of the left kidney but very difficult location and then attempted to laser the stone using a laser fiber and then attempted to use a basket. After multiple attempts was unsuccessful in treating the stones and abandoned further attempts. I worked my way out of the ureter and over the wire I then loaded up a stent and advanced a stent up into the kidney. A retrograde pyelogram was then performed looking at the contrast images to assist in placement of the stent next and confirmed the location of the kidney and the ureter I then pulled on the wire and the stent coiled in the kidney and bladder in good position. I then drained the bladder with the cystoscope the patient's anesthetic was reversed he will be given pain medicine antibiotics and instructions to call the office for an appointment to remove the stent. Patient's anesthetic is being reversed and is taken back to the PACU in stable condition. Type of Anesthesia:: General Drains: stents on left side - Admit VTE Documentation VTE Present on Admission: No VTE Mechan Device Prophylaxis: SCD's
[2019-10-10 17:11] VITALS: BP 105/87; BP 139/87; PULSE 98; RESP 18; TEMP 37.2; O2SAT 92
[2019-10-10 17:15] VITALS: BP 105/87; BP 145/77; PULSE 83; RESP 18; O2SAT 97
[2019-10-10] MEDS: Ketorolac 15 MG/ML Vial IV (17:25)
[2019-10-10 17:30] VITALS: BP 105/87; BP 154/72; PULSE 74; RESP 16; O2SAT 97
[2019-10-10 17:46] VITALS: BP 105/87; BP 133/72; PULSE 58; RESP 16; TEMP 36.8; O2SAT 97
[2019-10-10] MEDS: oxyCODONE 5 MG Tablet PO (18:04)
[2019-10-10 18:28] VITALS: BP 105/87; BP 143/74; PULSE 65; RESP 16; TEMP 36.4; O2SAT 96
== END 2019-10-10 18:32 | disposition home or self-care (01) ==
LOC: SDC 13:47 → AC 13:48
PROVIDERS: PCP Family Medicine; Referring Provider Urology; Visit Provider Urology
PROC: 0TJ98ZZ Inspection of Ureter, Via Natural or Artificial Opening Endoscopic (ICD-10-PCS; CPT 52352; principal; 2019-10-10 15:05)
DX: N20.0 Calculus of kidney (principal); G47.30 Sleep apnea, unspecified; Z79.82 Long term (current) use of aspirin; Z87.442 Personal history of urinary calculi
CPT/HCPCS: 52356; 76000; J7120; C1769; C2617; J2405

== ENCOUNTER → 2019-10-16 12:25 | Outpatient (CLI) | payer MEDICARE, OTHER, SELFPAY ==
[2019-10-10 14:08] VITALS: BMI 29.2
[2019-10-21 08:07] LABS: Testosterone, Free 2.49 ng/dL (5.00-21.00)
[2019-10-23 11:58] LABS: Testosterone, % Free 1.75 % (1.50-4.20); Testosterone, Total 142 ng/dL (264-916)
== END ==
PROVIDERS: PCP Family Medicine; Referring Provider Urology; Visit Provider Urology
DX: E29.1 Testicular hypofunction (principal)
CPT/HCPCS: 36415; 84402; 84403

== ENCOUNTER → 2020-01-08 14:38 | Outpatient (CLI) | payer MEDICARE, OTHER, SELFPAY ==
--- NOTE | 2020-01-08 14:40 | RAD_ITS ---
STUDY: X-RAY - ABDOMEN/PELVIS REASON FOR EXAM: Male, 69 years old. Left-sided renal stones. Pain. TECHNIQUE: Single AP view of the abdomen / pelvis. COMPARISON: 10/07/2019. FINDINGS: Normal visualized lung bases. Overlapping stones are seen in what is probably the left lower pole. These measure approximately 7 mm greatest dimension which is larger than on previous study. No definite stones on the right. No definite stones along the course of the ureter. There is an unremarkable bowel gas pattern. There is no demonstrated free abdominal air. The visualized liver, spleen and kidneys are grossly normal in size and morphology. Normal soft tissue structures. Normal visualized osseous structures. RAD/Abdomen Single View IMPRESSION: Increasing size of 2 stones probably in lower pole of the left kidney. Electronically Signed: Scar Lacy MD at 22:54 EDT , Service support ,
== END ==
PROVIDERS: PCP Family Medicine; Referring Provider Urology; Visit Provider Urology
DX: N20.0 Calculus of kidney (principal)
CPT/HCPCS: 74018

== ENCOUNTER → 2020-09-27 13:42 | Outpatient (CLI) | payer MEDICARE, OTHER, SELFPAY ==
--- NOTE | 2020-09-27 13:45 | CT_ITS ---
STUDY: CT ABDOMEN AND PELVIS WITHOUT CONTRAST REASON FOR EXAM: Male, 70 years old. LEFT FLANK PAIN RECENT GROSS HEMATURIA RADIATION DOSAGE (If Supplied By Facility): CTDIvol = ( 13.34 ) mGy, DLP = ( 656.65 ) mGycm TECHNIQUE: Transaxial images were obtained from the dome of the diaphragm to the symphysis pubis without oral contrast, and without intravenous contrast. Sagittal and coronal images were reconstructed. Individualized dose optimization techniques were used for this CT. COMPARISON: None. FINDINGS: The visualized lung bases are unremarkable. The visualized portions of the heart are within normal limits. Normal liver. Normal gallbladder and extrahepatic biliary system. Normal spleen. Normal pancreas. Normal bilateral adrenal glands. Multiple bilateral kidney stones largest measures 9 mm in the left kidney. There is no hydronephrosis. No ureter stones are seen. Normal visualized stomach. Normal small intestine. Normal colon. The appendix is visualized and appears normal. Normal abdominal aorta. Normal inferior vena cava. Normal retroperitoneum. Normal urinary bladder. Normal abdominal wall. Normal osseous structures. CT/Abdomen/Pelvis without Cont IMPRESSION: Multiple bilateral kidney stones largest measures 9 mm in the left kidney. There is no hydronephrosis. No ureter stones are seen. Colon diverticulosis. Electronically Signed: Alexandra Grady MD at 16:26 EST Tel , Service support ,
== END ==
PROVIDERS: PCP Family Medicine; Referring Provider Nurse Practitioner Adult Health; Visit Provider Nurse Practitioner Adult Health
DX: N20.0 Calculus of kidney (principal)
CPT/HCPCS: 74176

== ENCOUNTER → 2020-09-28 07:19 | Outpatient (CLI) | payer MEDICARE, OTHER, SELFPAY ==
[2020-09-28 09:59] LABS: Absolute Lymphocyte Count 1.64 X10^3/uL (0.83-4.51); Basophil# 0.02 X10^3/uL; Basophil% 0.4 % (0-1); Eosinophil# 0.05 X10^3/uL; Hemoglobin 16.2 g/dL (13.0-16.5); Lymphocyte # 1.64 X10^3/ul (4.0); Lymphocyte % 32.1 % (19-41); Mean Corp Hgb Conc 33.8 g/dL (32-36); Mean Corpuscular Hgb 29.9 pg (27.0-32.0); Mean Corpuscular Volume 88.7 fL (80-94); Mean Platelet Vol. 9.9 fl (6.2-12.0); Monocyte% 7.8 % (0-10); NRBC Flagged by Analyzer 0 % (0-5); Neutrophil # 2.99 X10^3/uL (2.7-7.7); Neutrophil % 58.5 % (47-70); Platelet Count 186 K/mm3 (150-450); RBC Distribution Width CV 12.6 % (11.6-14.6); RBC Distribution Width SD 41.1 fl (35.1-43.9); Red Blood Count 5.41 M/mm3 (4.6-6.2); White Blood Count 5.1 K/mm3 (4.4-11.0)
[2020-09-28 10:14] LABS: PSA,Total - Annual Screen 0.62 ng/mL (0.00-4.00)
== END ==
PROVIDERS: PCP Family Medicine; Referring Provider Nurse Practitioner Adult Health; Visit Provider Nurse Practitioner Adult Health
DX: E29.1 Testicular hypofunction (principal); Z12.5 Encounter for screening for malignant neoplasm of prostate
CPT/HCPCS: 36415; 84153; 84403; 85025; G0103

== ENCOUNTER → 2020-10-04 07:28 | Outpatient (CLI) | payer MEDICARE, OTHER, SELFPAY | PROVIDERS: PCP Family Medicine; Referring Provider Nurse Practitioner Adult Health; Visit Provider Nurse Practitioner Adult Health | DX: E29.1 Testicular hypofunction (principal) | CPT/HCPCS: 36415; 84403 ==

== ENCOUNTER → 2021-06-24 08:03 | Outpatient (CLI) | payer MEDICARE, OTHER, SELFPAY ==
--- NOTE | 2021-06-24 09:10 | RAD_ITS ---
STUDY: X-RAY - RIGHT KNEE REASON FOR EXAM: Male, 71 years old. PAIN TECHNIQUE: 4 view(s) of the knee. COMPARISON: None. FINDINGS: Normal visualized distal femur. Normal visualized proximal tibia and fibula. Normal proximal tibiofibular articulation. Normal medial femorotibial compartment. Normal lateral femorotibial compartment. Normal patellofemoral articulation. There is no demonstrated joint effusion. The soft tissue structures are unremarkable. RAD/Knee 4 or More Views IMPRESSION: Normal x-ray examination of the knee. Electronically Signed: Tank Hickey MD ([place]) at 9:50 EST , Service support ,
--- NOTE | 2021-06-24 09:10 | RAD_ITS ---
STUDY: X-RAY - LEFT KNEE REASON FOR EXAM: Male, 71 years old. PAIN TECHNIQUE: 4 view(s) of the knee. COMPARISON: None. FINDINGS: Normal visualized distal femur. Normal visualized proximal tibia and fibula. Normal proximal tibiofibular articulation. Normal medial femorotibial compartment. Normal lateral femorotibial compartment. Normal patellofemoral articulation. There is no demonstrated joint effusion. The soft tissue structures are unremarkable. RAD/Knee 4 or More Views IMPRESSION: Normal x-ray examination of the knee. Electronically Signed: Tank Hickey MD ([place]) at 9:50 EST , Service support ,
[2021-06-24 10:11] LABS: Absolute Lymphocyte Count 1.62 X10^3/uL (0.83-4.51); Basophil# 0.04 X10^3/uL; Basophil% 0.8 % (0-1); Eosinophil# 0.15 X10^3/uL; Eosinophils% 2.9 % (0-5); Hematocrit 48.2 % (40-54); Hemoglobin 16.5 g/dL (13.0-16.5); Lymphocyte # 1.62 X10^3/ul (0.83-4.51); Lymphocyte % 30.8 % (19-41); Mean Corp Hgb Conc 34.2 g/dL (32-36); Mean Corpuscular Volume 90.4 fL (80-94); Mean Platelet Vol. 9.7 fl (6.2-12.0); Monocyte# 0.45 X10^3/uL; Monocyte% 8.6 % (0-10); NRBC Flagged by Analyzer 0 % (0-5); Neutrophil # 2.98 X10^3/uL (2.7-7.7); Neutrophil % 56.5 % (47-70); Platelet Count 221 K/mm3 (150-450); RBC Distribution Width CV 13.1 % (11.6-14.6); RBC Distribution Width SD 42.9 fl (35.1-43.9); Red Blood Count 5.33 M/mm3 (4.6-6.2); White Blood Count 5.3 K/mm3 (4.4-11.0)
[2021-06-24 10:43] LABS: ALB/GLOB Ratio 1.3 RATIO (0.9-2.4); AST(SGOT) 20 U/L (15-37); Alanine Aminotransfer ALT/SGPT 45 U/L (16-61); Albumin, Serum 3.8 g/dL (3.2-5.0); Alkaline Phosphatase 59 U/L (45-117); Anion Gap 5 (5-15); BUN 21 mg/dL (7-18); BUN/Creat Ratio 19.6 RATIO (10-20); Calcium,Total 8.6 mg/dL (8.5-10.1); Chloride 110 mmol/L (98-107); Cholesterol 175 mg/dL (200); Creatinine, Serum 1.07 mg/dL (0.70-1.30); EST Glomerular Filtration Rate 73 mL/min (>60); Est Glom Filt Rate - Afr Amer 88 mL/min (>60); Glucose 96 mg/dL (74-106); High Density Lipoprotein 43 mg/dL; Potassium 3.9 mmol/L (3.5-5.1); Protein, Total 6.8 g/dL (6.4-8.2); Sodium Level 145 mmol/L (136-145); Triglycerides 218 mg/dL; Very Low Density Lipoprotein 44 mg/dL (5-40)
== END ==
PROVIDERS: PCP Family Medicine; Referring Provider Family Medicine; Visit Provider Family Medicine
DX: Z51.81 Encounter for therapeutic drug level monitoring (principal); M25.561 Pain in right knee; M25.562 Pain in left knee; E78.5 Hyperlipidemia, unspecified; Z12.5 Encounter for screening for malignant neoplasm of prostate
CPT/HCPCS: 36415; 73564; 80053; 80061; 85025

== ENCOUNTER → 2022-02-20 | Outpatient (CLI) | payer MEDICARE, OTHER, SELFPAY ==
--- NOTE | 2022-02-20 15:34 | RAD_ITS ---
EXAM: XR LEFT ELBOW COMPLETE, 3 OR MORE VIEWS CLINICAL INDICATION: PAIN TECHNIQUE: Frontal, lateral and oblique views of the left elbow. This report was created using [employer] report generation technology. COMPARISON: None. FINDINGS: BONES/JOINTS: Unremarkable. There is no displacement of the anterior or posterior fat pads. No acute fracture. No subluxation. Normal alignment. Preservation of the joint space. No destructive or sclerotic lesions. SOFT TISSUES: Unremarkable. No soft tissue swelling or gas. No radiopaque foreign body. RAD/Elbow min 3 Views IMPRESSION: Negative left elbow. Electronically Signed: Dominik Stephens MD at 16:17 EDT ,
== END | disposition home or self-care (01) ==
PROVIDERS: PCP Family Medicine
DX: M25.522 Pain in left elbow (principal)
CPT/HCPCS: 73080

== ENCOUNTER → 2022-03-20 | Outpatient (CLI) | payer MEDICARE, OTHER, SELFPAY ==
--- NOTE | 2022-03-20 07:54 | RAD_ITS ---
STUDY: X-RAY - ABDOMEN/PELVIS REASON FOR EXAM: Male, 72 years old. CALCULUS OF KIDNEY` TECHNIQUE: Single AP view of the abdomen / pelvis. COMPARISON: Comparison is made with prior study dated 01/08/2020. FINDINGS: Normal visualized lung bases. There is an abundance of fecal material throughout the colon. 1.9 cm x 1 cm overlapping calculi in the lower pole calyx of the left kidney. A punctate calculus is also seen in the upper pole calyx of the left kidney as well as in the lower pole calyx of the right kidney. Normal soft tissue structures. There are diffuse degenerative changes of the visualized lumbar spine. RAD/Abdomen Single View IMPRESSION: 1.9 cm x 1 cm calculus versus superimposed calculi in the lower pole calyx of the left kidney. Punctate calculi seen in the upper poles of both kidneys. Electronically Signed: Anurag Spears MD at 10:29 EDT ,
[2022-03-20 10:04] LABS: PSA,Total - Annual Screen 0.64 ng/mL (0.00-4.00)
== END | disposition home or self-care (01) ==
PROVIDERS: PCP Family Medicine; Referring Provider Urology; Visit Provider Urology
DX: N20.0 Calculus of kidney (principal); Z12.5 Encounter for screening for malignant neoplasm of prostate
CPT/HCPCS: 36415; 74018; 84153; G0103

== ENCOUNTER → 2022-08-21 | Outpatient (CLI) | payer MEDICARE, OTHER, SELFPAY ==
--- NOTE | 2022-08-21 12:36 | RAD_ITS ---
STUDY: X-RAY - LEFT SHOULDER REASON FOR EXAM: Male, 72 years old. PAIN TECHNIQUE: 4 view(s) of the shoulder. COMPARISON: None. FINDINGS: Narrowed glenohumeral articulation. Normal acromioclavicular joint. Normal acromion. Normal humeral head and visualized proximal humerus. The soft tissue structures are unremarkable. Normal visualized pulmonary apex. RAD/Shoulder min 2 Views IMPRESSION: Degenerative changes. No acute fracture or dislocation Electronically Signed: Master Mathew MD at 22:40 EST ,
== END | disposition home or self-care (01) ==
PROVIDERS: PCP Family Medicine; Referring Provider Family Medicine; Visit Provider Family Medicine
DX: M25.512 Pain in left shoulder (principal)
CPT/HCPCS: 73030

== ENCOUNTER → 2023-01-11 | Outpatient (CLI) | payer MEDICARE, OTHER, SELFPAY ==
--- NOTE | 2023-01-11 07:55 | RAD_ITS ---
EXAM: XR RIGHT HIP WITH PELVIS WHEN PERFORMED, 2 OR 3 VIEWS CLINICAL INDICATION: RIGHT HIP PAIN TECHNIQUE: Two or three views of the right hip with pelvis when performed. COMPARISON: No relevant prior studies available. FINDINGS: BONES/JOINTS: Unremarkable. No displaced fracture. No destructive or sclerotic lesions. Note that overlapping bowel shadows may however obscure fine detail. Sacroiliac joint is unremarkable. No widening of the pubic symphysis. The articular structures are unremarkable. SOFT TISSUES: Unremarkable. No soft tissue swelling or gas. RAD/HIP, UNI W/ Pelvis 2-3 Views IMPRESSION: No evidence of displaced pelvic or hip fracture. Electronically Signed: Vijay Cabezas MD at 6:57 EDT ,
== END | disposition home or self-care (01) ==
LOC: RAD 07:52
PROVIDERS: PCP Family Medicine
DX: M25.551 Pain in right hip (principal)
CPT/HCPCS: 73502

== ENCOUNTER → 2023-02-20 | Outpatient (CLI) | payer MEDICARE, OTHER, SELFPAY ==
--- NOTE | 2023-02-20 14:00 | RAD_ITS ---
STUDY: X-RAY - ABDOMEN/PELVIS REASON FOR EXAM: Male, 73 years old. Kidney stone. TECHNIQUE: Single AP view of the abdomen / pelvis on 2 images. COMPARISON: CT of the abdomen and pelvis dated September 2020. FINDINGS: Normal visualized lung bases. Normal bowel gas pattern with no disproportionate dilatation or free abdominal air. The visualized liver, spleen and kidneys are grossly normal in size and morphology. The weight 2.3 cm in diameter calcification projected over the lower pole of the left kidney increased in size from the comparison CT of September 2020. Small calcification of 2 mm adjacent to the larger calcification. Normal visualized osseous structures. RAD/Abdomen Single View IMPRESSION: Increase in size of left mid abdominal calcification as described. Electronically Signed: Navi Balderas MD at 15:39 EDT ,
== END | disposition home or self-care (01) ==
LOC: RAD 13:54
PROVIDERS: PCP Family Medicine; Referring Provider Urology; Visit Provider Urology
DX: N20.0 Calculus of kidney (principal)
CPT/HCPCS: 74018

== ENCOUNTER → 2023-04-02 | Outpatient (CLI) | payer MEDICARE, OTHER, SELFPAY ==
[2023-04-02 18:49] LABS: PSA,Total - Annual Screen 0.76 ng/mL (0.00-4.00)
== END | disposition home or self-care (01) ==
LOC: MTLAB 15:42
PROVIDERS: PCP Family Medicine; Referring Provider Urology; Visit Provider Urology
DX: Z12.5 Encounter for screening for malignant neoplasm of prostate (principal)
CPT/HCPCS: 36415; 84153; G0103

== ENCOUNTER → 2023-04-03 | Outpatient (CLI) | payer MEDICARE, OTHER, SELFPAY | END | disposition home or self-care (01) | LOC: LABSPEC 15:43 | PROVIDERS: PCP Family Medicine; Referring Provider Urology; Visit Provider Urology | DX: R30.0 Dysuria (principal) | CPT/HCPCS: 87086 ==

== ENCOUNTER → 2023-06-18 | Outpatient (CLI) | payer MEDICARE, OTHER, SELFPAY ==
--- NOTE | 2023-06-18 14:15 | MRI_ITS ---
STUDY: MRI LUMBAR SPINE WITHOUT CONTRAST REASON FOR EXAM: Male, 73 years old. LUMBAR RADICULOPATHY TECHNIQUE: Standardized fat and water weighted pulse sequences were obtained in the sagittal and axial planes. COMPARISON: CT abdomen and pelvis without contrast 09/27/2020. FINDINGS: T11-T12 and T12-L1: Normal endplates. Normal disc height, hydration and morphology. No ventral extradural defects. Normal central canal and bilateral intervertebral neural foramina. Normal lumbar lordosis. There is no substantial scoliosis. Normal conus medullaris that terminates at the lower L1 vertebral body level. L1-2: Normal endplates. Minimal disc space height narrowing. Mild ventral extradural defect due to posterior bulging annulus. No significant facet arthropathy. Normal central canal and bilateral lateral recesses. Normal bilateral intervertebral neural foramina. L2-3: Modic type I degenerative vertebral marrow edema underneath the vertebral endplates. Moderate disc space height narrowing. Minimal degenerative retrolisthesis of L2 on L3. Mild ventral extradural defect due to calcified posterior annulus and posterior bulging annulus. No significant facet arthropathy. Mild dorsal epidural lipomatosis. Mild central canal stenosis with an AP canal diameter of 10 mm. Normal bilateral lateral recesses. Mild stenosis of the bilateral intervertebral neural foramina. L3-4: Prominent Schmorl''s nodes in both vertebral endplates. Mild disc space height narrowing. Minimal ventral extradural defect due to posterior bulging annulus. No significant facet arthropathy. Normal central canal and bilateral lateral recesses. Normal bilateral intervertebral neural foramina. L4-5: Tiny Schmorl''s nodes in the vertebral endplates. Moderate disc space height narrowing. Mild ventral extradural defect due to posterior bulging annulus. No significant facet arthropathy. Mild dorsal epidural lipomatosis. Mild central canal stenosis with an AP canal diameter of 10 mm. Normal bilateral lateral recesses. Mild stenosis of the right intervertebral neural foramen. Normal left intervertebral neural foramen. L5-S1: Schmorl''s nodes in the vertebral endplates. Moderate disc space height narrowing. Minimal degenerative retrolisthesis of L5 on S1. Small posterior bulging annulus with very minimal ventral extradural defect due to presence of ventral epidural fat. No significant facet arthropathy. Normal central canal and bilateral lateral recesses. Moderately pronounced stenosis of the left intervertebral neural foramen with suspicious impingement of the left L5 nerve. Mild stenosis of the right intervertebral neural foramen. Normal visualized sacral ala. Normal visualized paraspinous soft tissue structures. MRI/Spine Lumbar (Routine) IMPRESSION: 1. Moderately pronounced stenosis of the left L5-S1 intervertebral neural foramen with impingement of the left L5 nerve (series 5 and 6, image 5). Advise clinical correlation for symptoms of left L5 nerve radiculopathy particularly upon weightbearing. 2. Mild L2-L3 intervertebral osteochondritis (Modic type I), minimal degenerative retrolisthesis of L2 on L3 and mild ventral extradural defect due to retrolisthesis and partially calcified posterior bulging annulus. The calcified posterior annulus is visible on CT abdomen of 09/27/2020. 3. No MRI evidence of lumbar extruded disc fragment. Electronically Signed: Teto Butts MD at 8:33 EST ,
== END | disposition home or self-care (01) ==
LOC: MRI 14:09
PROVIDERS: PCP Family Medicine; Referring Provider Family Medicine; Visit Provider Family Medicine
DX: M54.16 Radiculopathy, lumbar region (principal); M51.36 Other intervertebral disc degeneration, lumbar region
CPT/HCPCS: 72148

== ENCOUNTER → 2023-06-28 | Outpatient (CLI) | payer MEDICARE, OTHER, SELFPAY ==
[2023-06-28 17:36] LABS: Absolute Lymphocyte Count 1.66 X10^3/uL (0.83-4.51); Absolute Neutrophil Count 3.5 X10^3/uL (2.0-7.7); Basophil# 0.03 X10^3/uL; Basophil% 0.5 % (0-1); Eosinophil# 0.08 X10^3/uL; Eosinophils% 1.4 % (0-5); Hemoglobin 15.8 g/dL (13.0-16.5); Lymphocyte # 1.66 X10^3/ul (0.83-4.51); Lymphocyte % 28.7 % (19-41); Mean Corp Hgb Conc 33.6 g/dL (32-36); Mean Corpuscular Hgb 29.2 pg (27.0-32.0); Mean Corpuscular Volume 86.7 fL (80-94); Mean Platelet Vol. 10.3 fl (6.2-12.0); Monocyte# 0.51 X10^3/uL; Monocyte% 8.8 % (0-10); NRBC Flagged by Analyzer 0 % (0-5); Neutrophil # 3.48 X10^3/uL (2.7-7.7); Neutrophil % 60.1 % (47-70); Platelet Count 191 K/mm3 (150-450); RBC Distribution Width CV 12.5 % (11.6-14.6); Red Blood Count 5.42 M/mm3 (4.6-6.2); White Blood Count 5.8 K/mm3 (4.4-11.0)
[2023-06-28 17:58] LABS: Erythrocyte Sedimentation Rate 4 mm/hr (0-20)
[2023-06-28 18:02] LABS: Vitamin B12 1060 pg/mL (211-911)
[2023-06-28 18:14] LABS: ALB/GLOB Ratio 1.3 RATIO (0.9-2.4); AST(SGOT) 18 U/L (15-37); Alanine Aminotransfer ALT/SGPT 31 U/L (16-61); Alkaline Phosphatase 61 U/L (45-117); Anion Gap 3 (5-15); BUN 16 mg/dL (7-18); CRP < 2.90 mg/L (0.0-3.0); Calcium,Total 8.8 mg/dL (8.5-10.1); Chloride 106 mmol/L (98-107); Creatinine, Serum 1.14 mg/dL (0.70-1.30); EST Glomerular Filtration Rate 67 mL/min (>60); Est Glom Filt Rate - Afr Amer 81 mL/min (>60); Globulin 3.1 g/dL (2.2-4.2); Glucose 100 mg/dL (74-106); LDH 182 U/L (87-241); Potassium 4.2 mmol/L (3.5-5.1); Protein, Total 7.1 g/dL (6.4-8.2); Sodium Level 141 mmol/L (136-145)
[2023-07-07 10:08] LABS: Testosterone, % Free 2.37 % (1.50-4.20); Testosterone, Free 6.73 ng/dL (5.00-21.00); Testosterone, Total 284 ng/dL (264-916)
== END | disposition home or self-care (01) ==
LOC: BFHLAB 15:55
PROVIDERS: PCP Family Medicine; Visit Provider Family Medicine
DX: R53.83 Other fatigue (principal); Z51.81 Encounter for therapeutic drug level monitoring; R10.9 Unspecified abdominal pain; M25.50 Pain in unspecified joint; D64.9 Anemia, unspecified; E34.9 Endocrine disorder, unspecified
CPT/HCPCS: 36415; 80053; 82607; 83615; 84402; 84403; 85025; 85652; 86140

== ENCOUNTER → 2023-07-03 | Outpatient (CLI) | payer MEDICARE, OTHER, SELFPAY ==
--- NOTE | 2023-07-03 16:22 | MRI_ITS ---
EXAM: MR LEFT UPPER EXTREMITY WITHOUT INTRAVENOUS CONTRAST, SHOULDER CLINICAL INDICATION: LT SHOULDER PAIN TECHNIQUE: Multiplanar and multisequence MR images of the left shoulder without intravenous contrast. COMPARISON: No relevant prior studies available. FINDINGS: TENDONS: SUPRASPINATUS: 6 x 6 mm high-grade articular surface partial tear of the distal supraspinatus tendon. INFRASPINATUS: Unremarkable. Intact. SUBSCAPULARIS: Unremarkable. Intact. TERES MINOR: Unremarkable. Intact. BICEPS BRACHII, LONG HEAD: Unremarkable. The extra-articular biceps tendon is in the bicipital groove. The intra-articular biceps tendon is normal. LIGAMENTS: GLENOHUMERAL: Unremarkable. Intact. MUSCLES: Unremarkable. No rotator cuff muscle atrophy. FLUID: Unremarkable. No joint effusion. No subacromial-subdeltoid space bursal fluid. CARTILAGE: Unremarkable. Articular cartilage intact. GLENOID LABRUM: Unremarkable. Intact, limited evaluation on non-arthrographic exam. BONES/JOINTS: Unremarkable. No fracture. No abnormal bone marrow signal. OTHER SOFT TISSUES: Unremarkable. No rotator interval edema. MRI/Upper Ext Joint Only(Routine) IMPRESSION: High-grade supraspinatus tendon partial tear. Electronically Signed: Libset Castillo MD at 18:34 EST Reading Location ID and State: [id number] / Tel , Service support ,
== END | disposition home or self-care (01) ==
LOC: MRI 16:10
PROVIDERS: PCP Family Medicine; Referring Provider Family Medicine; Visit Provider Family Medicine
DX: M25.512 Pain in left shoulder (principal)
CPT/HCPCS: 73221

== ENCOUNTER 2023-10-10 15:00 | Outpatient (RCR) | payer MEDICARE, OTHER, SELFPAY ==
--- NOTE | 2023-07-12 11:00 | HP.PTEVAL_ITS ---
Patient's Visit Information Visit Information Visit Information: PATRICIA SLAUGHTER is a 73 year old M referred to Physical Therapy by Dr. Priscilla Napoles DO with a diagnosis of RTC tear or rupture left shoulder, M75.100. Date of Evaluation: 07/12/23 Physical Therapist: Robi Lama Visit Plan Frequency: 2x /Week Duration: 6 Weeks Plan: Continue with improving left shoulder ROM and RTC/scapular strengthening. Use manual therapy and modalities as needed for pain control. Subjective Subjective: Pt. is a 73 y.o. male who has been having left shoulder pain for a couple of months with no specific injury that he is aware. He reports that in the fall in does a ton of blowing for leaves so he is not sure if that possibly caused it. He also had a fall in late April and he is not sure if this caused it as well. Pt. PLOF includes no history of left shoulder pain in the past before this. He is left handed. Pt. had recent MRI which showed high grade supraspinatus tendon partial tear. Pt. denies any numbness or tingling in his left arm or chest pain. He has difficulty with reaching overhead, reaching out to the side, reaching behind his back, sleeping, lifting things, carrying things, pushing/pulling, UE dressing, working out, housework and yard work. Pt. is retired and worked in industrial painting and power washing. His goal with physical therapy is to get back to working out with no shoulder pain. Pt. rates left shoulder pain at 3/10 currently, at worst 8/10, at best 0/10 and describes the pain as achy and sharp. Pt. is taking Ibuprofen for pain. His PMH includes multiple kidney stone surgeries, eye surgery, tumor removed from neck, and hernia surgery. His hobbies include being outside and working around the house. Objective Objective: Palpation- No tenderness to palpation Neck AROM- WNL for all motions Left shoulder AROM- flexion 172 degrees, abduction 162 degrees pain, ER 85 degrees, IR 78 degrees Left shoulder PROM- WNL for all motions Right shoulder AROM- flexion 176 degrees, abduction 178 degrees, ER 90 degrees, IR 80 degrees Right shoulder PROM- WNL for all motions Left shoulder strength flexion 4+/5, abduction 4/5, ER 4/5, IR 5/5 Right shoulder strength flexion 5/5, abduction 5/5, ER 5/5, IR 5/5 Special tests- Painful arc [+], Drop arm [-], Hawkin's Barry [+], Infraspinatus test[+], Lift off test [-] Balance/Special Test Scores Quick DASH Score: 38.6350 Goals Goal 1:: Pt. will improve left shoulder strength to 4+/5 for all motions in order to complete all ADL's. Goal Time Frame: 4-6 Weeks Goal 2:: Pt. will be able to sleep a full night with no interruptions due to shoulder pain. Goal Time Frame: 4-6 Weeks Goal 3:: Pt. will be able to complete UE dressing with no left shoulder pain. Goal Time Frame: 4-6 Weeks Goal 4:: Pt. will be able to lift at least 20# overhead with left shoulder pain < 3/10. Goal Time Frame: 4-6 Weeks Goal 5:: Pt. will rate left shoulder pain at worst at 3/10 with ADL's. Goal Time Frame: 4-6 Weeks Goal 6:: Pt. will improve Quick Dash score <30% disability in order to improve ADL's and IADL's. Goal Time Frame: 4-6 Weeks Rehabilitation Potential Physical Therapy Diagnosis: Decreased left shoulder ROM, strength, and pain. Pt. presents at this time with left shoulder RTC tear. Rehabilitation Potential: Good Anticipated Interventions Patient/Client Instruction: Educate patient on: Condition and Plan of Care For the Purpose of:: To decrease pain, To improve ability to perform ADL's, To improve performance and independence with ADL's, To increase flexibility/ROM, To assume or resume ADL's and To improve tolerance to ADL's Therapeutic Exercise to Include: Strength training, Passive ROM and Active ROM Comment: Continue with improving left shoulder ROM and RTC/scapular strengthening. For the Purpose of:: To decrease pain, To increase ROM, To improve ability to perform ADL's, To improve performance and independence with ADL's, To increase flexibility/ROM, To assume or resume ADL's and To improve tolerance to ADL's Manual Therapy Techniques to Include: Mobilization, Passive ROM, Functional dry needling and Soft tissue mobilization For the Purpose of:: To decrease pain, To increase ROM, To improve ability to perform ADL's, To improve performance and independence with ADL's, To increase flexibility/ROM, To assume or resume ADL's and To improve tolerance to ADL's TENS: Yes IF ES: Yes Cryotherapy (ice pack, ice massage): Yes For the Purpose of:: To decrease pain, To decrease swelling/inflammation, To increase ROM, To improve ability to perform ADL's, To improve performance and independence with ADL's, To increase flexibility/ROM, To assume or resume ADL's and To improve tolerance to ADL's Text: Thank you for the opportunity to evaluate your patient. For Medicare and Medicare HMO plans, please review the plan of care and approve it. It will need to be FAXED BACK to us at [phone] for Medicare purposes. For Medicare only, by signing this I certify the plan of care. Please let me know if there are questions or concerns regarding this plan of care. Physician Signature: Date:
--- NOTE | 2023-08-22 16:23 | HP.PTREVAL ---
Re-Evaluation Intro: Dr. Priscilla Napoles, DO, It has been my pleasure to treat PATRICIA SLAUGHTER over the last 11 visits for RTC tear or rupture left shoulder, M75.100. Please see the progress note below for an update on the physical therapy plan of care! Subjective Subjective: Pt reports he is still having pain and weakness in L shoulder, but sleep and radiating pain have improved. Currently has a kidney stone that has added to overall pain, disrupting sleep. Objective Objective/Function: ROM: L shoulder flex 150, ABD 135 with painful arc MMT: global /5 strength with pain, ER weakest Noted popping/clicking when raising/lowering L arm, improved performance with scapular retraction with flex in scapular plane Plan Plan Plan: 1) Increase L shoulder/RTC strengthening with less pain (mid-range) 2) Thoracic mobility + manual to address humeral head positioning 3) Postural training with frequent tactile cues 4) Improve scapular endurance with UE movement 5) Scapular and humeral stabilization ex within pain-free range 6) Educate/demonstrate/review gym equipment use and exercises Balance/Gait/Functional tests Balance/Special Test Scores Quick DASH Score: 50.0000 Goals Goals Goal 1:: Pt. will improve left shoulder strength to 4+/5 for all motions in order to complete all ADL's. Goal Time Frame: 4-6 Weeks Goal Progress: Progressing Goal 2:: Pt. will be able to sleep a full night with no interruptions due to shoulder pain. Goal Time Frame: 4-6 Weeks Goal Progress: Progressing Goal 3:: Pt. will be able to complete UE dressing with no left shoulder pain. Goal Time Frame: 4-6 Weeks Goal Progress: Progressing Goal 4:: Pt. will be able to lift at least 20# overhead with left shoulder pain < 3/10. Goal Time Frame: 4-6 Weeks Goal Progress: Progressing Goal 5:: Pt. will rate left shoulder pain at worst at 3/10 with ADL's. Goal Time Frame: 4-6 Weeks Goal Progress: Progressing Goal 6:: Pt. will improve Quick Dash score <30% disability in order to improve ADL's and IADL's. Goal Time Frame: 4-6 Weeks Goal Progress: Progressing Anticipated Interventions Anticipated Interventions Patient/Client Instruction: Educate patient on: Condition and Plan of Care For the Purpose of:: To decrease pain, To improve ability to perform ADL's, To improve performance and independence with ADL's, To increase flexibility/ROM, To assume or resume ADL's and To improve tolerance to ADL's Therapeutic Exercise to Include: Strength training, Passive ROM and Active ROM Comment: Continue with improving left shoulder ROM and RTC/scapular strengthening. For the Purpose of:: To decrease pain, To increase ROM, To improve ability to perform ADL's, To improve performance and independence with ADL's, To increase flexibility/ROM, To assume or resume ADL's and To improve tolerance to ADL's Manual Therapy Techniques to Include: Mobilization, Passive ROM, Functional dry needling and Soft tissue mobilization For the Purpose of:: To decrease pain, To increase ROM, To improve ability to perform ADL's, To improve performance and independence with ADL's, To increase flexibility/ROM, To assume or resume ADL's and To improve tolerance to ADL's TENS: Yes IF ES: Yes Cryotherapy (ice pack, ice massage): Yes For the Purpose of:: To decrease pain, To decrease swelling/inflammation, To increase ROM, To improve ability to perform ADL's, To improve performance and independence with ADL's, To increase flexibility/ROM, To assume or resume ADL's and To improve tolerance to ADL's Re-Evaluation Ending Re-evaluation ending: Please do not hesitate to contact me at [phone] by phone or if you have questions or concerns regarding this new plan of care! Sincerely, Bryn Wadsworth DPT
--- NOTE | 2023-09-26 14:02 | HP.PTREVAL_ITS ---
Re-Evaluation Intro: Dr. Priscilla Napoles, DO, It has been my pleasure to treat PATRICIA SLAUGHTER over the last 19 visits for RTC tear or rupture left shoulder, M75.100. Please see the progress note below for an update on the physical therapy plan of care! Subjective Subjective: Pt reports feeling much better with little to no limitations with ADLs. [place] that gym program during PT sessions and cortisone shot have improved pain greatly. Some soreness today and only real pain happens during cold weather. Objective Objective/Function: ROM: full ROM with little to no pain, some tightness/discomfort with ABD but full ROM MMT: global L shoulder strength 4+/5, but some weakness with empty can position, pulling but no pain with resistance Pt overall feeling better, able to do more with less pain. Pt still feels somewhat limited in ROM d/t tightness and stretching, may consider giving print out with stretches if pt is unable to achieve on his own. Pt nearing end of PT, continue to monitor tolerance to working out and irritability. Plan Plan Plan: Pt to return in 3 weeks to check in and see how home HEP/gym program is going. Pt to cancel appt. if having no issues. Balance/Gait/Functional tests Balance/Special Test Scores Quick DASH Score: 18.1800 Goals Goals Goal 1:: Pt. will improve left shoulder strength to 4+/5 for all motions in order to complete all ADL's. Goal Time Frame: 4-6 Weeks Goal Progress: Part met, empty can 4/5 Goal 2:: Pt. will be able to sleep a full night with no interruptions due to shoulder pain. Goal Time Frame: 4-6 Weeks Goal Progress: Goal Met Goal 3:: Pt. will be able to complete UE dressing with no left shoulder pain. Goal Time Frame: 4-6 Weeks Goal Progress: Goal Met Goal 4:: Pt. will be able to lift at least 20# overhead with left shoulder pain < 3/10. Goal Time Frame: 4-6 Weeks Goal Progress: Goal Met Goal 5:: Pt. will rate left shoulder pain at worst at 3/10 with ADL's. Goal Time Frame: 4-6 Weeks Goal Progress: Goal Met Goal 6:: Pt. will improve Quick Dash score <30% disability in order to improve ADL's and IADL's. Goal Time Frame: 4-6 Weeks Goal Progress: Goal Met Anticipated Interventions Anticipated Interventions Patient/Client Instruction: Educate patient on: Condition and Plan of Care For the Purpose of:: To decrease pain, To improve ability to perform ADL's, To improve performance and independence with ADL's, To increase flexibility/ROM, To assume or resume ADL's and To improve tolerance to ADL's Therapeutic Exercise to Include: Strength training, Passive ROM and Active ROM Comment: Continue with improving left shoulder ROM and RTC/scapular strengthening. For the Purpose of:: To decrease pain, To increase ROM, To improve ability to perform ADL's, To improve performance and independence with ADL's, To increase flexibility/ROM, To assume or resume ADL's and To improve tolerance to ADL's Manual Therapy Techniques to Include: Mobilization, Passive ROM, Functional dry needling and Soft tissue mobilization For the Purpose of:: To decrease pain, To increase ROM, To improve ability to perform ADL's, To improve performance and independence with ADL's, To increase flexibility/ROM, To assume or resume ADL's and To improve tolerance to ADL's TENS: Yes IF ES: Yes Cryotherapy (ice pack, ice massage): Yes For the Purpose of:: To decrease pain, To decrease swelling/inflammation, To increase ROM, To improve ability to perform ADL's, To improve performance and independence with ADL's, To increase flexibility/ROM, To assume or resume ADL's and To improve tolerance to ADL's Re-Evaluation Ending Re-evaluation ending: Please do not hesitate to contact me at [phone] by phone or if you have questions or concerns regarding this new plan of care! Sincerely, Bryn Wadsworth DPT
--- NOTE | 2023-10-12 16:29 | HP.PTDCSUM_ITS ---
Discharge Summary D/C summary: It has been my pleasure to treat PATRICIA SLAUGHTER referred by Dr. Priscilla Napoles DO, with the diagnosis of RTC tear or rupture left shoulder, M75.100 for a total of 20 visit(s). Discharge Date: 10/10/23 Please see the following information for a summary of their discharge status. Subjective Subjective: Pt. reports overall doing better. He has eased back into gym exercises. He does have some pain with straight abduction, but rest of his mov ements go pretty well. Pt. reports being 85% better overall. Pain Left shldr: Pain Intensity (Out of 10): 0 Overall Improvement % Improvement: 85 Objective Objective/Function: AROM: Pt. has full L shoulder ROM, some mild increase in s ymptoms with mid range abd and flexion, but improves at end ranges. Minimal pain with functional ER and IR motions. MMT: L shoulder: flexion 12.9# mild increase NW, abd 11.5# mild increase NW, ER at side 11.7# increase NW, IR 31.5# Pt. has been lifting in gym, most light to moderate weight. Pt. reports overall pleased. Pt. is to continue with exercises in gym and progress as tolerated. Goals Goal 1:: Pt. will improve left shoulder strength to 4+/5 for all motions in order to complete all ADL's. Goal Progress: Part met, empty can 4/5 Goal 2:: Pt. will be able to sleep a full night with no interruptions due to shoulder pain. Goal Progress: Goal Met Goal 3:: Pt. will be able to complete UE dressing with no left shoulder pain. Goal Progress: Goal Met Goal 4:: Pt. will be able to lift at least 20# overhead with left shoulder pain < 3/10. Goal Progress: Goal Met Goal 5:: Pt. will rate left shoulder pain at worst at 3/10 with ADL's. Goal Progress: Goal Met Goal 6:: Pt. will improve Quick Dash score <30% disability in order to improve ADL's and IADL's. Goal Progress: Goal Met Plan Plan: Pt. to be DC from PT at this point in time. D/C Information Discharge Comments: Pt. will be DC from PT at this point. pt. to complete all of his gym exercises as previously. d/c sentence: If there are questions or concerns regarding this patient's physical therapy, please feel free to call me at [phone]. Thank you for the referral of this patient. Sincerely, Bryn Wadsworth, DPT Balance/Gait/Functional tests Balance/Special Test Scores Quick DASH Score: 18.1800 Improvement % Improvement: 85
--- NOTE | 2023-10-15 10:09 | HP.PTDCSUM ---
Discharge Summary D/C summary: It has been my pleasure to treat PATRICIA SLAUGHTER referred by Dr. Priscilla Napoles DO, with the diagnosis of RTC tear or rupture left shoulder, M75.100 for a total of 20 visit(s). Discharge Date: 10/10/23 Please see the following information for a summary of their discharge status. Subjective Subjective: Pt. reports overall doing better. He has eased back into gym exercises. He does have some pain with straight abduction, but rest of his movements go pretty well. Pt. reports being 85% better overall. Pain Left shldr: Pain Intensity (Out of 10): 0 Overall Improvement % Improvement: 85 Objective Objective/Function: AROM: Pt. has full L shoulder ROM, some mild increase in symptoms with mid range abd and flexion, but improves at end ranges. Minimal pain with functional ER and IR motions. MMT: L shoulder: flexion 12.9# mild increase NW, abd 11.5# mild increase NW, ER at side 11.7# increase NW, IR 31.5# Pt. has been lifting in gym, most light to moderate weight. Pt. reports overall pleased. Pt. is to continue with exercises in gym and progress as tolerated. Goals Goal 1:: Pt. will improve left shoulder strength to 4+/5 for all motions in order to complete all ADL's. Goal Progress: Part met, empty can 4/5 Goal 2:: Pt. will be able to sleep a full night with no interruptions due to shoulder pain. Goal Progress: Goal Met Goal 3:: Pt. will be able to complete UE dressing with no left shoulder pain. Goal Progress: Goal Met Goal 4:: Pt. will be able to lift at least 20# overhead with left shoulder pain < 3/10. Goal Progress: Goal Met Goal 5:: Pt. will rate left shoulder pain at worst at 3/10 with ADL's. Goal Progress: Goal Met Goal 6:: Pt. will improve Quick Dash score <30% disability in order to improve ADL's and IADL's. Goal Progress: Goal Met Plan Plan: Pt. to be DC from PT at this point in time. D/C Information Discharge Comments: Pt. will be DC from PT at this point. pt. to complete all of his gym exercises as previously. d/c sentence: If there are questions or concerns regarding this patient's physical therapy, please feel free to call me at [phone]. Thank you for the referral of this patient. Sincerely, Bryn Wadsworth, DPT Balance/Gait/Functional tests Balance/Special Test Scores Quick DASH Score: 18.1800 Improvement % Improvement: 85
== END 2023-10-10 19:00 | disposition home or self-care (01) ==
LOC: PT 15:00
PROVIDERS: PCP Family Medicine; Referring Provider Family Medicine; Visit Provider Family Medicine
DX: M75.102 Unspecified rotator cuff tear or rupture of left shoulder, not specified as traumatic (principal)
CPT/HCPCS: 97110; 97161; 97164; 97530

== ENCOUNTER → 2023-11-16 | Outpatient (CLI) | payer MEDICARE, OTHER, SELFPAY ==
--- NOTE | 2023-11-16 09:02 | RAD_ITS ---
STUDY: X-RAY - ABDOMEN/PELVIS REASON FOR EXAM: Male, 73 years old. KUB- [facility]ONES TECHNIQUE: Single AP view of the abdomen / pelvis. COMPARISON: None. FINDINGS: Normal visualized lung bases. Elevated right hemidiaphragm. There is an unremarkable bowel gas pattern. The visualized liver, spleen and kidneys are grossly normal in size and morphology. 20 mm calcific opacity projecting over the left kidney worrisome for left renal stone. No obvious or ureteral stone. Normal soft tissue structures. Normal visualized osseous structures. RAD/Abdomen Single View IMPRESSION: Suspect 20 mm left renal stone. Electronically Signed: Truman Hernandez MD at 23:30 EDT ,
[2023-11-16 10:26] LABS: Absolute Lymphocyte Count 1.88 X10^3/uL (0.83-4.51); Absolute Neutrophil Count 2.4 X10^3/uL (2.0-7.7); Basophil# 0.04 X10^3/uL; Basophil% 0.8 % (0-1); Eosinophil# 0.13 X10^3/uL; Eosinophils% 2.6 % (0-5); Hematocrit 49.2 % (40-54); Hemoglobin 16.5 g/dL (13.0-16.5); Lymphocyte # 1.88 X10^3/ul (0.83-4.51); Lymphocyte % 38.2 % (19-41); Mean Corp Hgb Conc 33.5 g/dL (32-36); Mean Corpuscular Hgb 29.6 pg (27.0-32.0); Mean Corpuscular Volume 88.3 fL (80-94); Mean Platelet Vol. 10.4 fl (6.2-12.0); Monocyte# 0.41 X10^3/uL; Monocyte% 8.3 % (0-10); NRBC Flagged by Analyzer 0 % (0-5); Neutrophil # 2.44 X10^3/uL (2.7-7.7); Neutrophil % 49.7 % (47-70); Platelet Count 201 K/mm3 (150-450); RBC Distribution Width CV 12.4 % (11.6-14.6); RBC Distribution Width SD 40.4 fl (35.1-43.9); Red Blood Count 5.57 M/mm3 (4.6-6.2); White Blood Count 4.9 K/mm3 (4.4-11.0)
[2023-11-16 11:09] LABS: Bacteria 0 SEEN /hpf (None Seen); Mucous, Urine 0 SEEN /hpf (<or=2+); Squamous Epithelial Cells - UA 0 SEEN /hpf (0-5)
[2023-11-16 11:14] LABS: ALB/GLOB Ratio 1.5 RATIO (0.9-2.4); AST(SGOT) 15 U/L (15-37); Alanine Aminotransfer ALT/SGPT 24 U/L (16-61); Alkaline Phosphatase 60 U/L (45-117); Anion Gap 5 (5-15); BUN 20 mg/dL (7-18); BUN/Creat Ratio 18.9 RATIO (10-20); Calcium,Total 8.9 mg/dL (8.5-10.1); Chloride 106 mmol/L (98-107); Cholesterol 148 mg/dL (200); Creatinine, Serum 1.06 mg/dL (0.70-1.30); EST Glomerular Filtration Rate 73 mL/min (>60); Est Glom Filt Rate - Afr Amer 88 mL/min (>60); Free T3 3.1 pg/mL (2.18-3.98); Globulin 2.6 g/dL (2.2-4.2); Glucose 90 mg/dL (74-106); High Density Lipoprotein 34 mg/dL; Potassium 3.6 mmol/L (3.5-5.1); Protein, Total 6.6 g/dL (6.4-8.2); Sodium Level 142 mmol/L (136-145); T4 Free Direct 0.84 ng/dL (0.76-1.46); Thyroid Stim Hormone (TSH) 3.19 uIU/mL (0.358-3.74); Triglycerides 215 mg/dL; Very Low Density Lipoprotein 43 mg/dL (5-40)
[2023-11-16 12:36] LABS: Color, Urine Yellow (Yellow); Glucose, Dipstick Normal (Normal); Ketone-Dipstick Negative (Negative); Leukocyte Esterase-Dipstick 100 /ul (Negative); Nitrite-Dipstick Negative (Negative); Occult Blood-Urine 50 /ul (Negative); Protein-Dipstick Negative (Negative); Urine Bilirubin Dipstick Negative (Negative); Urine Clarity Clear (Clear); Urine Urobilinogen Normal (Normal)
[2023-11-16 12:44] LABS: Red Blood Cells-Urine 0-5 SEEN /hpf (0-5); White Blood Cells 10-25 SEEN /hpf (0-5)
[2023-11-16 14:19] LABS: Microalbumin,Random Urine 29.7 mg/L (NO RANGE EST.); Microalbumin:Creatinine Ratio 41.3 mg/g CRE (<30 mg/g CRE)
== END | disposition home or self-care (01) ==
PROVIDERS: PCP Family Medicine; Referring Provider Family Medicine; Visit Provider Family Medicine
DX: N20.9 Urinary calculus, unspecified (principal); Z51.81 Encounter for therapeutic drug level monitoring; E78.00 Pure hypercholesterolemia, unspecified; R53.83 Other fatigue; R30.0 Dysuria
CPT/HCPCS: 36415; 74018; 80053; 80061; 81001; 82043; 82570; 84439; 84443; 84481; 85025; 87086

== ENCOUNTER → 2023-12-04 | Outpatient (CLI) | payer MEDICARE, OTHER, SELFPAY ==
--- NOTE | 2023-12-04 09:40 | RAD_ITS ---
INDICATION: History of kidney stones EXAMINATION/TECHNIQUE: X-RAY - XR Abdomen 1 View COMPARISON: Prior study dated: 11/16/2023 FINDINGS: BOWEL GAS PATTERN: Non-obstructive. No bowel or stomach distention. FREE AIR: Not assessed on a single supine view. ORGANOMEGALY: Not seen. CALCIFICATIONS: 2 cm calcification likely representing stone overlying the lower pole of the left kidney. 7 mm calcification on the right side of the abdomen overlying the region of the right kidney. Adjacent faint calcifications. LOWER CHEST: No acute pathology. BONES AND SOFT TISSUES: No acute pathology. RAD/Abdomen Single View IMPRESSION: Bilateral calcifications concerning for renal stones as described above. Electronically Signed: Brayan Vanegas MD at 10:01 EDT ,
== END | disposition home or self-care (01) ==
LOC: MTRAD 09:37
PROVIDERS: PCP Family Medicine; Referring Provider Family Medicine; Visit Provider Family Medicine
DX: N20.0 Calculus of kidney (principal); R10.9 Unspecified abdominal pain
CPT/HCPCS: 74018

== ENCOUNTER → 2024-03-20 | Outpatient (CLI) | payer MEDICARE, OTHER, SELFPAY ==
[2024-03-20 17:44] LABS: Absolute Lymphocyte Count 1.28 X10^3/uL (0.83-4.51); Absolute Neutrophil Count 5.3 X10^3/uL (2.0-7.7); Basophil# 0.02 X10^3/uL; Basophil% 0.3 % (0-1); Eosinophil# 0.09 X10^3/uL; Eosinophils% 1.2 % (0-5); Hematocrit 43.8 % (40-54); Hemoglobin 14.6 g/dL (13.0-16.5); Lymphocyte # 1.28 X10^3/ul (0.83-4.51); Lymphocyte % 17.4 % (19-41); Mean Corp Hgb Conc 33.3 g/dL (32-36); Mean Corpuscular Volume 90.1 fL (80-94); Mean Platelet Vol. 10.1 fl (6.2-12.0); Monocyte% 8.2 % (0-10); NRBC Flagged by Analyzer 0 % (0-5); Neutrophil # 5.29 X10^3/uL (2.7-7.7); Neutrophil % 72.1 % (47-70); Platelet Count 246 K/mm3 (150-450); RBC Distribution Width CV 12.3 % (11.6-14.6); RBC Distribution Width SD 40.6 fl (35.1-43.9); Red Blood Count 4.86 M/mm3 (4.6-6.2); White Blood Count 7.3 K/mm3 (4.4-11.0)
[2024-03-20 18:07] LABS: ALB/GLOB Ratio 1.4 RATIO (0.9-2.4); AST(SGOT) 17 U/L (15-37); Alanine Aminotransfer ALT/SGPT 44 U/L (16-61); Albumin, Serum 3.9 g/dL (3.2-5.0); Alkaline Phosphatase 56 U/L (45-117); Anion Gap 5 (5-15); BUN 23 mg/dL (7-18); BUN/Creat Ratio 19.2 RATIO (10-20); Chloride 105 mmol/L (98-107); EST Glomerular Filtration Rate 63 mL/min (>60); Est Glom Filt Rate - Afr Amer 77 mL/min (>60); Globulin 2.8 g/dL (2.2-4.2); Glucose 104 mg/dL (74-106); Protein, Total 6.7 g/dL (6.4-8.2); Sodium Level 140 mmol/L (136-145)
[2024-03-28 16:09] LABS: Testosterone, Total 484 ng/dL (264-916)
== END | disposition home or self-care (01) ==
LOC: LABSPEC 15:43
PROVIDERS: PCP Family Medicine; Referring Provider Family Medicine; Visit Provider Family Medicine
DX: N20.9 Urinary calculus, unspecified (principal)
CPT/HCPCS: 80053; 84402; 84403; 85025; 87086

== ENCOUNTER → 2024-04-16 | Outpatient (CLI) | payer MEDICARE, OTHER, SELFPAY | END | disposition home or self-care (01) | LOC: MTLAB 10:25 | PROVIDERS: PCP Family Medicine; Referring Provider Urology; Visit Provider Urology | DX: R35.1 Nocturia (principal) | CPT/HCPCS: 36415; 84153 ==

== ENCOUNTER → 2024-04-17 | Outpatient (CLI) | payer MEDICARE, OTHER, SELFPAY | END | disposition home or self-care (01) | LOC: BFHLAB 14:47 | PROVIDERS: PCP Family Medicine; Referring Provider Family Medicine; Visit Provider Family Medicine | DX: R30.0 Dysuria (principal) | CPT/HCPCS: 87086 ==

== ENCOUNTER → 2024-06-13 | Outpatient (CLI) | payer MEDICARE, OTHER, SELFPAY ==
[2024-06-13 15:35] LABS: Hematocrit 45.2 % (40-54); Hemoglobin 15.3 g/dL (13.0-16.5); Mean Corp Hgb Conc 33.8 g/dL (32-36); Mean Corpuscular Hgb 30.5 pg (27.0-32.0); Mean Corpuscular Volume 90.2 fL (80-94); Mean Platelet Vol. 10.5 fl (6.2-12.0); Platelet Count 201 K/mm3 (150-450); RBC Distribution Width CV 12.5 % (11.6-14.6); RBC Distribution Width SD 41.3 fl (35.1-43.9); Red Blood Count 5.01 M/mm3 (4.6-6.2); White Blood Count 4.4 K/mm3 (4.4-11.0)
[2024-06-13 16:15] LABS: PTHIN 69.7 pg/mL (18.4-80.1)
[2024-06-13 16:42] LABS: ALB/GLOB Ratio 1.3 RATIO (0.9-2.4); AST(SGOT) 14 U/L (15-37); Alanine Aminotransfer ALT/SGPT 31 U/L (16-61); Albumin, Serum 3.8 g/dL (3.2-5.0); Alkaline Phosphatase 58 U/L (45-117); Anion Gap 6 (5-15); BUN 22 mg/dL (7-18); BUN/Creat Ratio 15.2 RATIO (10-20); Chloride 108 mmol/L (98-107); Creatinine, Serum 1.45 mg/dL (0.70-1.30); EST Glomerular Filtration Rate 51 mL/min (>60); Est Glom Filt Rate - Afr Amer 62 mL/min (>60); Glucose 110 mg/dL (74-106); Magnesium 2.4 mg/dL (1.6-2.6); Phosphorus 2.3 mg/dL (2.5-4.9); Potassium 4.1 mmol/L (3.5-5.1); Protein, Total 6.8 g/dL (6.4-8.2); Sodium Level 142 mmol/L (136-145)
== END | disposition home or self-care (01) ==
LOC: MTLAB 13:17
PROVIDERS: PCP Family Medicine; Referring Provider Internal Medicine; Visit Provider Internal Medicine
DX: N20.0 Calculus of kidney (principal)
CPT/HCPCS: 36415; 80053; 83735; 83970; 84100; 84550; 85027

== ENCOUNTER → 2024-09-15 | Outpatient (CLI) | payer MEDICARE, OTHER, SELFPAY ==
--- NOTE | 2024-09-15 12:57 | US_ITS ---
PROCEDURE: KIDNEY AND BLADDER REASON FOR EXAM: Nephrolithiasis. TECHNIQUE: Bilateral renal ultrasound. COMPARISON: None. FINDINGS: Normal renal sizes, parenchymal thicknesses, and echotextures. No hydronephrosis. No cysts or large solid renal masses. RIGHT Kidney Size: 11.2 cm x 6.3 cm x 6.4 cm Volume: 235.7 mL Cortical Thickness (if discernible): 1.6 cm (>6mm is normal) LEFT Kidney Size: 11.5 cm x 4.8 cm x 6.2 cm Volume: 176.3 mL Cortical Thickness (if discernible): 1.7 (>6mm is normal) There is a 2.6 cm calculus. Incidental note is made of a enlarged prostate measuring 5.8 cm x 5.6 cm x 3 cm. There is evidence of trabeculation of the bladder floor. US/Kidney and Bladder IMPRESSION: Left intrarenal calculus. Enlarged prostate with indentation of the bladder base. Reading Location: [id number]
[2024-09-15 20:15] LABS: Anion Gap 6 (5-15); BUN 28 mg/dL (7-18); BUN/Creat Ratio 20.1 RATIO (10-20); Calcium,Total 9.4 mg/dL (8.5-10.1); Chloride 102 mmol/L (98-107); Creatinine, Serum 1.39 mg/dL (0.70-1.30); EST Glomerular Filtration Rate 53 mL/min (>60); Est Glom Filt Rate - Afr Amer 65 mL/min (>60); Glucose 92 mg/dL (74-106); Sodium Level 138 mmol/L (136-145)
== END | disposition home or self-care (01) ==
PROVIDERS: PCP Family Medicine; Referring Provider Internal Medicine; Visit Provider Internal Medicine
DX: N20.0 Calculus of kidney (principal)
CPT/HCPCS: 36415; 76770; 80048

== ENCOUNTER → 2024-11-24 | Outpatient (CLI) | payer MEDICARE, OTHER, SELFPAY ==
--- NOTE | 2024-11-24 15:14 | US_ITS ---
PROCEDURE: KIDNEY AND BLADDER, 11/24/2024 REASON FOR EXAM: F/U LT NEPHROLITHIASIS, CALCULUS OF KIDNEY TECHNIQUE: Grayscale and color doppler ultrasound of the kidneys and bladder was performed. COMPARISON: 09/15/2024 FINDINGS: Right kidney: 12.2 cm in length. Interpolar cyst, 10 x 11 x 12 mm. 4 x 4 x 3 mm nonobstructing intrarenal calculus. No visualized hydronephrosis. Left kidney: 13.4 cm in length. A large calcification with posterior shadowing is otherwise not well evaluated by ultrasound, measuring 2.2 x 2.4 x 2.4 cm. Additional nonobstructing intrarenal calculus measures 9 x 8 x 6 mm. No hydronephrosis. Bladder: Underdistended and suboptimally evaluated. Estimated volume 61 mL. Mild bladder wall thickening to 5 mm versus underdistention. Other: Prostate measures 3.3 x 2.9 x 4.9 cm with estimated volume 24 mL (high- normal). Calcifications noted.. US/Kidney and Bladder IMPRESSION: 1. Bilateral nonobstructing intrarenal calculi. 2. Mild bladder wall thickening versus underdistention. Correlate for cystitis and/or chronic bladder outlet obstruction. 3. Additional description as above. Reading Location: [id number]
== END | disposition home or self-care (01) ==
LOC: US 15:12
PROVIDERS: PCP Family Medicine; Referring Provider Internal Medicine; Visit Provider Internal Medicine
DX: N20.0 Calculus of kidney (principal)
CPT/HCPCS: 76770

== ENCOUNTER → 2024-12-12 | Outpatient (CLI) | payer MEDICARE, OTHER, SELFPAY ==
[2024-12-12 12:11] LABS: Anion Gap 11 (5-15); BUN 23 mg/dL (4-19); BUN/Creat Ratio 16.9 RATIO (10-20); Calcium,Total 9.7 mg/dL (7.6-11.0); Carbon Dioxide 27.7 mmol/L (21.0-32.0); Chloride 102 mmol/L (98-108); Creatinine, Serum 1.34 mg/dL (0.70-1.20); EST Glomerular Filtration Rate 56 (>60); Glucose 88 mg/dL (70-99); Potassium 3.8 mmol/L (3.3-5.1); Sodium Level 140 mmol/L (133-145)
== END | disposition home or self-care (01) ==
LOC: LAB 09:56
PROVIDERS: PCP Family Medicine; Referring Provider Internal Medicine; Visit Provider Internal Medicine
DX: N20.0 Calculus of kidney (principal)
CPT/HCPCS: 36415; 80048

== ENCOUNTER → 2025-07-08 | Outpatient (CLI) | payer MEDICARE, OTHER, SELFPAY ==
[2025-07-08 17:25] LABS: Hematocrit 51.1 % (40-54); Hemoglobin 17.1 g/dL (13.0-16.5); Immature Granulocytes Count 0.050 X10^3/uL (0.0-0.0); Mean Corp Hgb Conc 33.5 g/dL (32-36); Mean Corpuscular Volume 90.9 fL (80-94); Mean Platelet Vol. 10.1 fl (6.2-12.0); NRBC Flagged by Analyzer 0 % (0-5); Platelet Count 207 K/mm3 (150-450); RBC Distribution Width CV 12.7 % (11.6-14.6); RBC Distribution Width SD 42.1 fl (35.1-43.9); Red Blood Count 5.62 M/mm3 (4.6-6.2); White Blood Count 9.7 K/mm3 (4.4-11.0)
[2025-07-08 18:17] LABS: AST(SGOT) 21 U/L (<=37); Alanine Aminotransfer ALT/SGPT 32 U/L (<=46); Albumin, Serum 4.6 g/dL (3.4-4.8); Alkaline Phosphatase 46 U/L (40-129); Anion Gap 9 (5-15); BUN 23 mg/dL (4-19); BUN/Creat Ratio 16.7 RATIO (10-20); Calcium,Total 9.5 mg/dL (7.6-11.0); Carbon Dioxide 30.1 mmol/L (21.0-32.0); Chloride 102 mmol/L (98-108); Cholesterol 165 mg/dL (<=200); Globulin 2.4 g/dL (2.2-4.2); Glucose 103 mg/dL (70-99); Low Density Lipoprotein Calc. 89 mg/dL; PSA,Total - Annual Screen 0.66 ng/mL (0.02-4.00); Potassium 3.9 mmol/L (3.3-5.1); Triglycerides 203 mg/dL; Very Low Density Lipoprotein 41 mg/dL (5-40); cholesterol:hdl ratio screen 4.01
== END | disposition home or self-care (01) ==
LOC: BFHLAB 15:42
PROVIDERS: PCP Family Medicine; Visit Provider Nurse Practitioner Family
DX: E78.5 Hyperlipidemia, unspecified (principal); I10 Essential (primary) hypertension; Z12.5 Encounter for screening for malignant neoplasm of prostate
CPT/HCPCS: 36415; 80053; 80061; 84153; 85025; G0103